=== PATIENT | female | born 1930 | race Caucasian/White ===

== ENCOUNTER 2016-07-28 15:32 | Emergency (ER) | payer OTHER, MEDICARE ==
[2016-07-28 15:41] VITALS: TEMP 98.4
--- NOTE | 2016-07-28 16:01 | EDPHY ---
H & P Time Seen by Provider: 07/28/16 15:51 HPI/ROS: CHIEF COMPLAINT: Hemoptysis HISTORY OF PRESENT ILLNESS: This patient is an anticoagulated 85 year old female who presents to the Emergency Department complaining of two episodes of coughing up bright red blood this afternoon. She reports that she has been sick for 5 weeks; her symptoms first presented with nasal congestion and cough. She was diagnosed with bronchitis by her primary care provider for which she has been treated symptomatically without antibiotics. She reports that frequency of coughing has decreased over the past two weeks and now has almost completely resolved. Upon arrival, her only concern is the hemoptysis this afternoon. She denies shortness of breath. She takes Xarelto and Plavix for atrial fibrillation and history of congestive heart failure and coronary artery disease with stenting. REVIEW OF SYSTEMS: Constitutional: No fever, no chills Eyes: No visual changes ENT: No sore throat Respiratory: +cough, +hemoptysis, no shortness of breath Cardiac: No chest pain Gastrointestinal: No nausea, no vomiting, no abdominal pain Genitourinary: No hematuria, no dysuria Musculoskeletal: No leg pain or swelling Skin: No rash Neurological: No headache, no numbness, no weakness Psychiatric: No depression Past Medical/Surgical History: 1. Congestive heart failure 2. Atrial fibrillation (Xarelto) 3. Coronary artery disease with stenting (Plavix) 4. Anxiety 5. Bipolar disorder 6. CKD 7. Mitral regurgitation 8. History of breast and endometrial cancer Prior medical records reviewed by myself, including most recent visit to the ED in 02/2016. Social History: Former smoker. Livest independently. Smoking Status: Former smoker Physical Exam: General Appearance: Alert, no distress Eyes: Pupils equal and round, no conjunctival pallor or injection ENT, Mouth: Mucous membranes moist Neck: Normal inspection Respiratory: Lungs are clear to auscultation Cardiovascular: Atrial fibrillation Gastrointestinal: Abdomen is soft and non- tender Neurological: A&O, nonfocal, normal gait Skin: Warm and dry, no rash Extremities: Nontender, no pedal edema Psychiatric: Mood and affect normal Constitutional: Initial Vital Signs Temperature (C) 36.9 C 07/28/16 15:36 Heart Rate 105 H 07/28/16 15:36 Respiratory Rate 16 07/28/16 15:36 Blood Pressure 144/82 H 07/28/16 15:36 O2 Sat (%) 98 07/28/16 15:36 O2 Delivery Mode Room Air Allergies/Adverse Reactions: ciprofloxacin [From Cipro] Allergy (Unknown, Verified 11/06/15 09:09) ciprofloxacin HCl [From Cipro] Allergy (Unknown, Verified 11/06/15 09:09) doxycycline Allergy (Unknown, Verified 11/06/15 09:09) levofloxacin [From Levaquin] Allergy (Unknown, Verified 11/06/15 09:09) quetiapine fumarate [From Seroquel] Allergy (Verified 11/06/15 09:09) Sulfa (Sulfonamide Antibiotics) [Sulfa(Sulfonamide Antibiotics)] Allergy ( Verified 11/06/15 09:09) Rash FLYNN Allergy (Uncoded 01/11/12 15:52) ACHILLES TENDONITIS Home Medications: Medication Instructions Recorded Clopidogrel Bisulfate [Plavix (*)] 75 mg PO DAILY 02/23/15 Diltiazem Cd [Cardizem ER 120 MG 120 mg PO DAILY@18 02/23/15 (*)] Furosemide [Lasix 20 MG (*)] 20 mg PO DAILY 02/23/15 Haloperidol [Haldol 1 MG (*)] 1.5 mg PO DAILY 02/23/15 Metoprolol Tartrate [Lopressor 50 50 mg PO BID 02/23/15 mg (*)] Multivitamins [Multivitamin (*)] 1 each PO DAILY 02/23/15 Rivaroxaban [Xarelto 15mg (*)] 15 mg PO DAILY@17 02/23/15 Acetaminophen [Tylenol 325mg (*)] 325 mg PO DAILY PRN 03/19/16 lamoTRIgine [LamICTAL 100 MG (*)] 200 mg PO DAILY 03/19/16 Aspirin [Aspirin 325 mg (*)] 325 mg PO DAILY #0 tab 03/20/16 Medical Decision Making - Diagnostics Imaging: Study: X-ray of the chest Indication: Cough Results: X-ray of the chest was obtained. The results of the study are: Stable cardiomegaly x5 months. No source for hemoptysis identified. The study was read by the radiologist, Dr. Ever Aguillon. I viewed the images myself on the PACS system. ED Course/Re-evaluation: This patient presents minor hemoptysis, complaining of two episodes this afternoon of hemoptysis which she describes as "teaspoon-sized bright red blood. " While examining the patient, she asked me for a Kleenex because she felt as though she was experiencing post-nasal drip. She spit out nasal mucous containing light pink blood into the Kleenex, suggesting that she may be experiencing mild epistaxis as opposed to hemoptysis. Will proceed with chest x-ray given the duration of the patient's cough as well as labs and continued monitoring here in the ED. 1700: Consultation with Dr. Waqas Hernández, body maker, who recommends that she continue anticoagulant use as prescribed and to avoid aspirin and NSAIDs. I discussed this recommendation with the patient who is agreeable to this. She denies NSAID or Aspirin use. She has not had any repeat episodes of hemoptysis while in the ED. She will be discharged home in good condition with customary return precautions and instructions to follow-up with Dr. Hansen, cardiology, on Saturday. Differential Diagnosis: Differential diagnosis includes though is not limited to pneumonia, severe anemia, hypotension, severe hemoptysis - Data Points Laboratory Results: Laboratory Results 07/28/16 16:20 07/28/16 16:20 Departure - Departure Disposition: Home, Routine, Self-Care Clinical Impression: Hemoptysis Condition: Good Instructions: Hemoptysis (ED) Additional Instructions: 1. Continue to take your medications as prescribed by Dr. Hansen. 2. Avoid using Aspirin or any Ibuprofen products. 3. Follow-up with Dr. Hansen on Saturday. Call first thing Saturday morning to schedule your appointment. 4. Return to the Emergency Department if you cough up large amounts of blood, feel faint or lightheaded, have chest pain, or for other serious concerns. Referrals: Luke Hansen MD [Medical Doctor] - As per Instructions Report Scribed for: Jeaneth Hamlin Report Scribed by: Teresa Morocho Date of Report: 07/28/16 Time of Report: 15:56 Physician Review and Approval Statement: 07/28/16 15:56 Portions of this note were transcribed by a medical records receptionist. I personally performed a history, physical exam, medical decision making, and confirmed accuracy of information the transcribed note.
--- NOTE | 2016-07-28 16:19 | CPEKG ---
Heart Rate: 89 RR Interval: 674 QRSD Interval: 98 QT Interval: 388 QTC Interval: 473 QRS [place]: -39 T Wave [place]: 69 EKG Severity - ABNORMAL ECG - EKG Impression: ATRIAL FIBRILLATION EKG Impression: LEFT AXIS DEVIATION EKG Impression: BORDERLINE T ABNORMALITIES, ANT-LAT LEADS Electronically Signed By: Jeaneth Hamlin 28-Jul-2016 23:05:03
[2016-07-28 16:44] LABS: % IMMATURE GRANULYOCYTES 0.3 % (0.0-1.1); ABSOLUTE IMMATURE GRANULOCYTES 0.03 10^3/uL (0.00-0.10); ADD DIFF? NO; ADD MORPH? NO; ADD SCAN? NO; ATYPICAL LYMPHOCYTE FLAG 10 (0-99); FRAGMENT RBC FLAG 0 (0-99); HEMATOCRIT 42.3 % (38.0-47.0); LEFT SHIFT FLG 0 (0-99); LIPEMIA HEMOLYSIS FLAG 80 (0-99); MEAN CELL HEMOGLOBIN CONCENTR. 33.1 g/dL (32.4-36.7); MEAN CELL VOLUME 93.6 fL (81.5-99.8); MEAN PLATELET VOLUME 10.2 fL (8.7-11.7); PLATELET CLUMPS FLAG 10 (0-99); PLATELET COUNT 198 10^3/uL (150-400); RED BLOOD CELL COUNT 4.52 10^6/uL (4.18-5.33); RED CELL DISTRIBUTION WIDTH 13.3 % (11.5-15.2)
[2016-07-28 16:47] VITALS: BP 145/97; PULSE 89; RESP 22; O2SAT 93
[2016-07-28 17:07] LABS: ANION GAP 15 mEq/L (8-16); CALCIUM 10.2 mg/dL (8.5-10.4); CARBON DIOXIDE 22 mEq/l (22-31); CHLORIDE 106 mEq/L (97-110); CREATININE 1.7 mg/dL (0.6-1.0); GLOMERULAR FILTRATION RATE 29; GLUCOSE 119 mg/dL (70-100); SODIUM 143 mEq/L (134-144)
== END 2016-07-28 17:26 | disposition home or self-care (01) ==
DX: R04.2 Hemoptysis (principal); I50.9 Heart failure, unspecified; I25.10 Atherosclerotic heart disease of native coronary artery without angina pectoris; Z79.82 Long term (current) use of aspirin; Z85.3 Personal history of malignant neoplasm of breast; Z85.42 Personal history of malignant neoplasm of other parts of uterus; Z87.891 Personal history of nicotine dependence

== ENCOUNTER → 2016-09-04 | Outpatient (CLI) | payer OTHER, MEDICARE | LOC: BHFA 11:30 | PROVIDERS: ATTEND Internal Medicine Cardiovascular Disease | DX: I25.10 Atherosclerotic heart disease of native coronary artery without angina pectoris (principal); R06.00 Dyspnea, unspecified ==

== ENCOUNTER → 2016-11-23 | Outpatient (CLI) | payer OTHER, MEDICARE | LOC: BHFA 14:15 | PROVIDERS: ATTEND Internal Medicine Cardiovascular Disease | DX: I25.10 Atherosclerotic heart disease of native coronary artery without angina pectoris (principal); I48.91 Unspecified atrial fibrillation ==

== ENCOUNTER → 2017-01-18 | Outpatient (CLI) | payer OTHER, MEDICARE | LOC: BHFA 09:00 | PROVIDERS: ATTEND Internal Medicine Cardiovascular Disease | DX: I25.10 Atherosclerotic heart disease of native coronary artery without angina pectoris (principal) | CPT/HCPCS: 78452; 93017; A9500; J2785 ==

== ENCOUNTER → 2017-03-01 | Outpatient (CLI) | payer OTHER, MEDICARE | LOC: FIMAGING 16:58 → EDSTATUS 16:59 | PROVIDERS: ATTEND Internal Medicine | DX: R05 Cough (principal); I51.7 Cardiomegaly | CPT/HCPCS: 71020; G0463 ==

== ENCOUNTER 2017-04-06 14:17 | Emergency (ER) | payer OTHER, MEDICARE ==
--- NOTE | 2017-04-06 14:46 | EDPHY ---
H & P Time Seen by Provider: 04/06/17 14:29 HPI/ROS: CHIEF COMPLAINT: Right-sided nose bleed HISTORY OF PRESENT ILLNESS: Patient is on Plavix and Xarelto and has atrial fibrillation. She has had a right-sided nosebleed for the past 2 hours and arrives by EMS. No other medical complaints except some gout in her feet. REVIEW OF SYSTEMS: Not dizzy or lightheaded PAST MEDICAL HISTORY: Includes atrial fibrillation on anticoagulation, cardiac stenting, bipolar, hypertension, heart failure, appendectomy. Social history: Here with her son General Appearance: Alert and conversant, cooperative. Moderately anxious. Normal pharynx. Some bleeding coming from the right nostril, but none from the left. Intact airway with speaking in full sentences. Emergency Department course/MDM: Patient had local anesthetic with 0.5% bupivacaine with epinephrine on gauze packed in the right nares. Inspected with otoscope and headlamp. A single area on the septum had exposed vessel, had Surgicel with bacitracin placed on it but no active bleeding was seen. Patient was observed. 1555: no further significant bleeding; do not think packing necessary. Smoking Status: Former smoker Constitutional: Initial Vital Signs Temperature (C) 36.2 C 04/06/17 14:17 Heart Rate 89 04/06/17 14:17 Respiratory Rate 20 04/06/17 14:17 Blood Pressure 176/105 H 04/06/17 14:17 O2 Sat (%) 92 04/06/17 14:17 O2 Delivery Mode Room Air Allergies/Adverse Reactions: ciprofloxacin [From Cipro] Allergy (Unknown, Verified 11/06/15 09:09) ciprofloxacin HCl [From Cipro] Allergy (Unknown, Verified 11/06/15 09:09) doxycycline Allergy (Unknown, Verified 11/06/15 09:09) levofloxacin [From Levaquin] Allergy (Unknown, Verified 11/06/15 09:09) quetiapine fumarate [From Seroquel] Allergy (Verified 11/06/15 09:09) Sulfa (Sulfonamide Antibiotics) [Sulfa(Sulfonamide Antibiotics)] Allergy ( Verified 11/06/15 09:09) Rash FLYNN Allergy (Uncoded 01/11/12 15:52) ACHILLES TENDONITIS Home Medications: Medication Instructions Recorded Clopidogrel Bisulfate [Plavix (*)] 75 mg PO DAILY 02/23/15 Diltiazem Cd [Cardizem ER 120 MG 120 mg PO DAILY@18 02/23/15 (*)] Furosemide [Lasix 20 MG (*)] 20 mg PO DAILY 02/23/15 Haloperidol [Haldol 1 MG (*)] 1.5 mg PO DAILY 02/23/15 Metoprolol Tartrate [Lopressor 50 50 mg PO BID 02/23/15 mg (*)] Multivitamins [Multivitamin (*)] 1 each PO DAILY 02/23/15 Rivaroxaban [Xarelto 15mg (*)] 15 mg PO DAILY@17 02/23/15 Acetaminophen [Tylenol 325mg (*)] 325 mg PO DAILY PRN 03/19/16 lamoTRIgine [LamICTAL 100 MG (*)] 200 mg PO DAILY 03/19/16 Aspirin [Aspirin 325 mg (*)] 325 mg PO DAILY #0 tab 03/20/16 MDM/Departure - Depart Disposition: Home, Routine, Self-Care Clinical Impression: Anterior epistaxis Condition: Good Instructions: Nosebleed (ED) Referrals: Sean Cardenas MD [Primary Care Provider] - As per Instructions Jw Kee MD [Medical Doctor] - As per Instructions
[2017-04-06 15:48] VITALS: RESP 16
[2017-04-06 16:23] VITALS: BP 162/88; PULSE 86; TEMP 97.9; O2SAT 92
== END 2017-04-06 16:22 | disposition home or self-care (01) ==
LOC: EDUNIT#
DX: R04.0 Epistaxis (principal); I10 Essential (primary) hypertension; Z79.82 Long term (current) use of aspirin; Z87.891 Personal history of nicotine dependence

== ENCOUNTER → 2017-06-04 | Outpatient (CLI) | payer OTHER, MEDICARE | LOC: FIMAGING 10:05 | PROVIDERS: ATTEND Obstetrics & Gynecology | DX: N63.10 Unspecified lump in the right breast, unspecified quadrant (principal) ==

== ENCOUNTER 2017-08-04 08:17 | Emergency (ER) | payer OTHER, MEDICARE ==
[2017-08-04] MEDS ORDERED: SILVER NITRATE APPLICATOR 1 APPL TP ONE ×2 (08:25→08:32)
[2017-08-04] MEDS ORDERED: OXYMETAZOLINE 30 ML NASAL SPRAY ONE (08:25)
[2017-08-04 08:30] VITALS: RESP 16; TEMP 97.5
[2017-08-04] MEDS ORDERED: OXYMETAZOLINE 30 ML NASAL SPRAY EACHNARE ONE (08:32)
[2017-08-04] MEDS ORDERED: COCAINE HCL 4% 4 ML BTL TP ONE ×2 (08:43→08:54)
--- NOTE | 2017-08-04 08:57 | EDPHY ---
H & P Smoking Status: Former smoker Time Seen by Provider: 08/04/17 08:23 HPI/ROS: CHIEF COMPLAINT: Epistaxis HISTORY OF PRESENT ILLNESS: 86-year-old female presents to the emergency department with epistaxis that began this morning. Patient has had problems with this in the past. She has a history of atrial fibrillation is on Plavix and Xarelto. She saw Dr. Helio Yan, ENT, 3 weeks ago and had a scope done. Apparently they could not find the source of bleeding. She was instructed to use Vaseline or Aquaphor twice daily. She states that she was using this regularly and then stopped few days ago because she did not like applying the medication daily. She denies pain in her chest or difficulty breathing. Denies a headache. Denies abdominal pain. No reports of hematemesis or coughing up blood. No reported trauma. REVIEW OF SYSTEMS: Constitutional: No fever, no chills. Eyes: No double or blurry vision. ENT: Epistaxis. No sore throat. Respiratory: No cough, no shortness of breath. Cardiac: No chest pain. Gastrointestinal: No abdominal pain, vomiting or diarrhea. Genitourinary: No dysuria. Musculoskeletal: No neck or back pain. Skin: No rashes. Neurological: No headache. (Tami Carmona) Past Medical/Surgical History: Atrial fibrillation, CHF, stent (Kristine,Tami Dey) Social History: Single and lives in [place] (Kristine,Tami Dey) Physical Exam: General Appearance: Alert, no distress. 115/101, 93% on room air. Eyes: Pupils equal and round. Extraocular motions are all intact. ENT: Mouth: Mucous membranes moist. Active bleeding noted from the right nostril. No bleeding from the left side. She does have some blood in the posterior pharynx. Respiratory: No wheezing, rhonchi, or rales, lungs are clear to auscultation. Cardiovascular: Regular rate and rhythm. Gastrointestinal: Abdomen is soft and nontender, no masses, no rebound or guarding, bowel sounds normal. Neurological: Alert and oriented x 3, cranial nerves II through XII grossly intact Skin: Warm and dry, no rashes. Musculoskeletal: Nontender to palpate along the cervical, thoracic or lumbar spine. Neck is supple. Extremities: Full range of motion and no peripheral edema. Psychiatric: Patient is oriented X 3, there is no agitation. (Tami Carmona) Constitutional: Initial Vital Signs Temperature (C) 36.4 C 08/04/17 08:17 Heart Rate 87 08/04/17 08:17 Respiratory Rate 16 08/04/17 08:17 Blood Pressure 115/101 H 08/04/17 08:17 O2 Sat (%) 93 08/04/17 08:17 O2 Delivery Mode Room Air Allergies/Adverse Reactions: ciprofloxacin [From Cipro] Allergy (Unknown, Verified 11/06/15 09:09) ciprofloxacin HCl [From Cipro] Allergy (Unknown, Verified 11/06/15 09:09) doxycycline Allergy (Unknown, Verified 11/06/15 09:09) levofloxacin [From Levaquin] Allergy (Unknown, Verified 11/06/15 09:09) quetiapine fumarate [From Seroquel] Allergy (Verified 11/06/15 09:09) Sulfa (Sulfonamide Antibiotics) [Sulfa(Sulfonamide Antibiotics)] Allergy ( Verified 11/06/15 09:09) Rash FLYNN Allergy (Uncoded 01/11/12 15:52) ACHILLES TENDONITIS Home Medications: Medication Instructions Recorded Clopidogrel Bisulfate [Plavix (*)] 75 mg PO DAILY 02/23/15 Diltiazem Cd [Cardizem ER 120 MG 120 mg PO DAILY@18 02/23/15 (*)] Furosemide [Lasix 20 MG (*)] 20 mg PO DAILY 02/23/15 Haloperidol [Haldol 1 MG (*)] 1.5 mg PO DAILY 02/23/15 Metoprolol Tartrate [Lopressor 50 50 mg PO BID 02/23/15 mg (*)] Multivitamins [Multivitamin (*)] 1 each PO DAILY 02/23/15 Rivaroxaban [Xarelto 15mg (*)] 15 mg PO DAILY@17 02/23/15 Acetaminophen [Tylenol 325mg (*)] 325 mg PO DAILY PRN 03/19/16 lamoTRIgine [LamICTAL 100 MG (*)] 200 mg PO DAILY 03/19/16 Aspirin [Aspirin 325 mg (*)] 325 mg PO DAILY #0 tab 03/20/16 Medical Decision Making ED Course/Re-evaluation: 86-year-old female presents to the emergency department with nosebleed. I spoke with the on-call ENT, Dr. Helio Yan, who recommended Merocel packing and he would see her in follow-up this week. He did not recommend oral antibiotics for this patient. Merocel packing placed. Patient tolerated well. The patient was observed for nearly 1 hr and did not have any recurring signs of bleeding. She will be discharged home with her son who is at bedside. (Tami Carmona) Did not see this patient while she was in the emergency department. However her care was discussed with PA while patient was in the department. I agree with treatment plan and management (Helio Zurita) Differential Diagnosis: Including but not limited to epistaxis, digital trauma, hypertension, anemia ( Tami Carmona) - Data Points Medications Given: Discontinued Medications Cocaine HCl (Cocaine Hcl) 1 araceli TP EDNOW ONE Stop: 08/04/17 08:55 Last Admin: 08/04/17 09:10 Dose: Not Given Oxymetazoline HCl (Afrin Nasal [place]) 2 sprays EACHNARE EDNOW ONE Stop: 08/04/17 08:33 Last Admin: 08/04/17 08:38 Dose: Not Given Silver Nitrate/Potassium Nitrate (Silver Nitrate Applicator) 1 each TP EDNOW ONE Stop: 08/04/17 08:33 Last Admin: 08/04/17 08:39 Dose: Not Given Departure - Departure Disposition: Home, Routine, Self-Care Clinical Impression: Epistaxis Condition: Good Instructions: Nosebleed (ED) Additional Instructions: Keep packing in nose until follow-up with Dr. Yan. Use nasal lubricant such as Vaseline as discussed. Return to the emergency department if you develop recurring bleeding or if you feel worse in any way. Referrals: Helio Yan MD [Medical Doctor] - 2-3 days without fail (ENT on-call)
[2017-08-04 10:01] VITALS: BP 177/89; PULSE 82; O2SAT 94
== END 2017-08-04 11:30 | disposition home or self-care (01) ==
LOC: EDUNIT#
PROC: 2Y41X5Z Packing of Nasal Region using Packing Material (ICD-10-PCS; principal; 2017-08-04)
DX: R04.0 Epistaxis (principal); I50.9 Heart failure, unspecified; Z79.01 Long term (current) use of anticoagulants; Z79.82 Long term (current) use of aspirin; Z87.891 Personal history of nicotine dependence

== ENCOUNTER 2017-08-04 12:12 | Emergency (ER) | payer OTHER, MEDICARE ==
[2017-08-04 12:17] VITALS: TEMP 98.6
[2017-08-04] MEDS ORDERED: SILVER NITRATE APPLICATOR 1 APPL TP ONE (13:57)
[2017-08-04] MEDS ORDERED: OXYMETAZOLINE 30 ML NASAL SPRAY ONE (13:57)
[2017-08-04] MEDS ORDERED: LIDOCAINE HCL 4% TOPICAL SOLN 50ML ONE (14:10)
--- NOTE | 2017-08-04 14:52 | EDPHY ---
H & P Smoking Status: Former smoker Time Seen by Provider: 08/04/17 12:55 HPI/ROS: CHIEF COMPLAINT: Recurring epistaxis, anxiety HISTORY OF PRESENT ILLNESS: 86-year-old female presents to the emergency department with recurring epistaxis. She was seen in emergency department earlier today after she had Merocel packing placed. She was instructed to follow up with her ENT, Dr. Helio Yan. The patient states that she lives alone and became extremely anxious that she was going to have recurring bleeding. Her son at bedside states that while he was with her, she did develop some recurring bleeding around the packing. She denies pain in her chest or difficulty breathing. The son feels that she will require admission to the hospital. ROS: Denies dysphagia, headache, difficulty breathing. (EricayaleTami Dey) Past Medical/Surgical History: Bipolar, appendectomy, hypertension, atrial fibrillation, CHF, stents, endometrial carcinoma, breast cancer (Tami Carmona) Social History: Lives alone in [place] (Tami Carmona) Physical Exam: On examination the patient has packing present in her right knee air. There is no active bleeding noted. There is small bleeding noted in the posterior pharynx. Her son is at bedside. Her heart is irregularly irregular. The patient seems extremely anxious. She is requesting admission to hospital. ( EricayaelLarisaTami M) Constitutional: Initial Vital Signs Temperature (C) 37.0 C 08/04/17 12:15 Heart Rate 112 H 08/04/17 12:15 Respiratory Rate 20 08/04/17 12:15 Blood Pressure 201/99 H 08/04/17 12:15 O2 Sat (%) 93 08/04/17 12:15 O2 Delivery Mode Room Air Allergies/Adverse Reactions: ciprofloxacin [From Cipro] Allergy (Unknown, Verified 11/06/15 09:09) ciprofloxacin HCl [From Cipro] Allergy (Unknown, Verified 11/06/15 09:09) doxycycline Allergy (Unknown, Verified 11/06/15 09:09) levofloxacin [From Levaquin] Allergy (Unknown, Verified 11/06/15 09:09) quetiapine fumarate [From Seroquel] Allergy (Verified 11/06/15 09:09) Sulfa (Sulfonamide Antibiotics) [Sulfa(Sulfonamide Antibiotics)] Allergy ( Verified 11/06/15 09:09) Rash FLYNN Allergy (Uncoded 01/11/12 15:52) ACHILLES TENDONITIS Home Medications: Medication Instructions Recorded Clopidogrel Bisulfate [Plavix (*)] 75 mg PO DAILY 02/23/15 Diltiazem Cd [Cardizem ER 120 MG 120 mg PO DAILY@18 02/23/15 (*)] Furosemide [Lasix 20 MG (*)] 20 mg PO DAILY 02/23/15 Haloperidol [Haldol 1 MG (*)] 1.5 mg PO DAILY 02/23/15 Metoprolol Tartrate [Lopressor 50 50 mg PO BID 02/23/15 mg (*)] Multivitamins [Multivitamin (*)] 1 each PO DAILY 02/23/15 Rivaroxaban [Xarelto 15mg (*)] 15 mg PO DAILY@17 02/23/15 Acetaminophen [Tylenol 325mg (*)] 325 mg PO DAILY PRN 03/19/16 lamoTRIgine [LamICTAL 100 MG (*)] 200 mg PO DAILY 03/19/16 Aspirin [Aspirin 325 mg (*)] 325 mg PO DAILY #0 tab 03/20/16 MDM/Departure - [facility] ED Course/Re-evaluation: 86-year-old female with recurring epistaxis. I explained to both the patient and son at bedside that if she would be admitted to the hospital, she is a great risk for ebony pneumonia or possibly influenza. I spoke with the on -call ENT, who was also her ENT, Dr. Helio Yan, who came to evaluate the patient and cauterize bleeding vessel. The patient will be discharged home and will follow up with Dr. Helio Yan in 2 weeks. (Tami Carmona) I did not see this patient while she was in the emergency department. However her care was discussed with the PA while patient was in the department. I agree with treatment plan and management (Helio Zurita) - Depart Disposition: Home, Routine, Self-Care Clinical Impression: Epistaxis, Anxiety Condition: Good Instructions: Nosebleed (ED), Anxiety (ED) Additional Instructions: Follow up with Dr. Helio Yan as instructed. Nasal lubricant in your nose as discussed. Referrals: Helio Yan MD [Medical Doctor] - As per Instructions
[2017-08-04 15:12] VITALS: BP 116/91; PULSE 73; RESP 16; O2SAT 97
--- NOTE | 2017-08-04 15:30 | GCON ---
[f rep st] CONSULTATION ENT CONSULTATION CHIEF COMPLAINT: Epistaxis. HISTORY OF PRESENT ILLNESS: An 86-year-old female on anticoagulation with a history of recurrent epi staxis. She was previously packed in the ER successfully but had a combination of some bloody ooze a nd extreme anxiety that brought her back to the ER. She returns to the ED with again some mild anxie ty and bleeding. I was called in consultation for this. She states she has had some bleeding during the day today, and after she left the ER before, had some more bloody ooze at home. Her son, who is with her, corroborates this. The bleeding has been coming just from the right. She is on home O2. She denies lightheadedness, difficulty breathing, nasal obstruction. REVIEW OF SYSTEMS: Negative x10 but for that which is reported in the HPI. PAST MEDICAL HISTORY/PAST SURGICAL HISTORY: Atrial fibrillation, CHF, stent. SOCIAL HISTORY: Lives alone in [place]. Former smoker. PHYSICAL EXAMINATION: VITAL SIGNS: AVSS. GENERAL: Alert, interactive, no acute distress. EARS: B ilateral pinnae, and canals are nonerythematous and without otorrhea. EYES: EOMI. NOSE: There is right-sided nasal packing. Only some mild serosanguineous ooze. ORAL CAVITY: Mild bleeding at the posterior oropharynx, otherwise unremarkable. NECK: Supple with normal inspection. NEUROLOGIC: Al ert and oriented x3. Cranial nerves 2-12 are grossly intact. ASSESSMENT: An 86-year-old female, who is anticoagulated and having recurrent epistaxis. We had a l charlene discussion with she and her son about whether to leave the packing in place or try cautery again. She has elected to try cautery again. The risks, benefits, and alternatives to this procedure were explained at length to her, and she stated she understood and agreed. PROCEDURE: Right-sided nasal packing was removed. A cotton ball soaked with Afrin and lidocaine was placed in the nasal cavity. There was some mobi-el-harmqemw bleeding coming from the septum at the right. Another cotton ball was placed. After a few minutes, both of these were removed. A Gross suction was used to evacuate the nasal cavity, and multiple silver nitrate cautery sticks were used t o eventually stop the bleeding from the mid and superior mid septum. Cotton balls were again placed and used to clean out the nose. The posterior oropharynx was re-examined. There was no blood there. Bacitracin ointment was placed on the cauterized portion of the septum. The patient tolerated this well. PLAN: 86-year-old female status post right septal cautery. She tolerated this well. No evidence of bleeding. She was discharged with both verbal and written instructions on how to take care of and p revent nosebleeds. She stated she understood these instructions. We will have her follow up in [place] in 2 weeks. /[id number]/MODL
== END 2017-08-04 15:12 | disposition home or self-care (01) ==
PROC: 095KXZZ Destruction of Nasal Mucosa and Soft Tissue, External Approach (ICD-10-PCS; principal; 2017-08-04)
DX: R04.0 Epistaxis (principal); F41.9 Anxiety disorder, unspecified; I10 Essential (primary) hypertension; I50.9 Heart failure, unspecified; Z79.82 Long term (current) use of aspirin; Z85.3 Personal history of malignant neoplasm of breast; Z85.42 Personal history of malignant neoplasm of other parts of uterus; Z95.5 Presence of coronary angioplasty implant and graft; Z87.891 Personal history of nicotine dependence

== ENCOUNTER 2017-08-06 02:22 | Emergency (ER) | payer OTHER, MEDICARE ==
[2017-08-06 02:36] VITALS: TEMP 98.1
[2017-08-06] MEDS ORDERED: OXYMETAZOLINE 30 ML NASAL SPRAY EACHNARE ONE (03:09)
[2017-08-06] MEDS ORDERED: TRANEXAMIC ACID 1,000 MG/10 ML VIAL TP ONE (03:13)
--- NOTE | 2017-08-06 03:22 | EDPHY ---
H & P Stated Complaint: epistaxis Time Seen by Provider: 08/06/17 02:58 HPI/ROS: HPI The patient presents with epistaxis which has been present for the last 1 hr, not responsive to nasal clamp that she had at home. She reports a slow ooze from her right nostril. She awoke at midnight and used her nasal saline and Neosporin. She noticed what felt like a scab in her nostril and used a Q-tip to touch this. The bleeding started quickly thereafter. She called the on- call ENT and followed instructions to use nasal clamp. She was concerned because the bleeding continued so she called 911. She arrives at an ambulance. There is no ongoing bleeding currently though nasal clamp is in place. She called her group leader [employer] last night and stopped taking her anticoagulants because of her bleeding. They have approved of this. Two days ago, she was seen in the ER for epistaxis on 2 separate visits, Dr. Yan for the and D cauterized her. REVIEW OF SYSTEMS Constitutional: No fever, no chills. Eyes: No discharge. ENT: No sore throat. Cardiovascular: No chest pain, no palpitations. Respiratory: No cough, no shortness of breath. Gastrointestinal: No abdominal pain, no vomiting. Genitourinary: No hematuria. Musculoskeletal: No back pain. Skin: No rashes. Neurological: No headache. PMHx: She is on anticoagulants for CAD as atrial fibrillation PHYSICAL General Appearance: Alert, no distress Eyes: Pupils equal and round no pallor or injection ENT, Mouth: Right nasal septum with no active bleeding, there is whitish membranous material in the septum, Mucous membranes moist Respiratory: Breathing comfortably Neurological: A&O, moves all extremities Skin: Warm and dry, no rashes Musculoskeletal: Neck is supple non tender Extremities: symmetrical, full range of motion Psychiatric: Patient is oriented X 3, there is no agitation Source: Patient, EMS, Old records - Personal History Tetanus Vaccine Date: < 5 yrs - Medical/Surgical History Hx Asthma: No Hx Chronic Respiratory Disease: No Hx Diabetes: No Hx Cardiac Disease: Yes Hx Renal Disease: Yes Hx Cirrhosis: No Hx Alcoholism: No Hx HIV/AIDS: No Hx Splenectomy or Spleen Trauma: No Other PMH: STENTS PLACE 06/18/13 , BREAST CA, LUMPECTOMY, HEART ATTACK, HYSTERECTOMY,BIPOLAR,APPY,HTN, ENDOMETRIAL CA, A-FIB, CHF - Social History Smoking Status: Former smoker Constitutional: Initial Vital Signs Temperature (C) 36.7 C 08/06/17 02:33 Heart Rate 97 08/06/17 02:33 Respiratory Rate 20 08/06/17 02:33 Blood Pressure 167/106 H 08/06/17 02:33 O2 Sat (%) 92 08/06/17 02:33 O2 Delivery Mode Room Air Allergies/Adverse Reactions: ciprofloxacin [From Cipro] Allergy (Unknown, Verified 08/06/17 02:33) ciprofloxacin HCl [From Cipro] Allergy (Unknown, Verified 08/06/17 02:33) doxycycline Allergy (Unknown, Verified 08/06/17 02:33) levofloxacin [From Levaquin] Allergy (Unknown, Verified 08/06/17 02:33) quetiapine fumarate [From Seroquel] Allergy (Verified 08/06/17 02:33) Sulfa (Sulfonamide Antibiotics) [Sulfa(Sulfonamide Antibiotics)] Allergy ( Verified 08/06/17 02:33) Rash FLYNN Allergy (Uncoded 08/06/17 02:33) ACHILLES TENDONITIS Home Medications: Medication Instructions Recorded Clopidogrel Bisulfate [Plavix (*)] 75 mg PO DAILY 02/23/15 Diltiazem Cd [Cardizem ER 120 MG 120 mg PO DAILY@18 02/23/15 (*)] Furosemide [Lasix 20 MG (*)] 20 mg PO DAILY 02/23/15 Haloperidol [Haldol 1 MG (*)] 1.5 mg PO DAILY 02/23/15 Metoprolol Tartrate [Lopressor 50 50 mg PO BID 02/23/15 mg (*)] Multivitamins [Multivitamin (*)] 1 each PO DAILY 02/23/15 Rivaroxaban [Xarelto 15mg (*)] 15 mg PO DAILY@17 02/23/15 Acetaminophen [Tylenol 325mg (*)] 325 mg PO DAILY PRN 03/19/16 lamoTRIgine [LamICTAL 100 MG (*)] 200 mg PO DAILY 03/19/16 Aspirin [Aspirin 325 mg (*)] 325 mg PO DAILY #0 tab 03/20/16 Medical Decision Making Procedures: NOSE BLEED Procedure: Epistaxis control. Indication: nosebleed not controlled by direct pressure. Risks, benefits, alternatives discussed with patient and consent obtained. The right nares was anesthetized with lidocaine with epinephrine Afrin. The anterior epistaxis was identified. The patient was treated with packing with TXA soaked cotton ball. Following the procedure the patient was re-examined and the bleeding was well controlled. The patient tolerated the procedure well. The procedure was performed by myself. Differential Diagnosis: 86-year-old female on anticoagulant medication presents with recurrent epistaxis after having cautery performed 2 days ago. The bleeding seems to be quite mild at this time. She has known bleeding from her right septum. In the emergency department, nasal clamps were placed. Patient was anesthetized with Afrin and lidocaine with epinephrine. She had a TXA soaked cotton ball placed in her right naris for 30 min with complete resolution of her bleeding. She was discharged home and I have instructed her to follow up with ENT today. She is in agreement with this plan. Departure - Departure Disposition: Home, Routine, Self-Care Clinical Impression: Epistaxis Condition: Good Instructions: Nosebleed (ED) Referrals: Sean Cardenas MD [Primary Care Provider] - As per Instructions Helio Yan MD [Medical Doctor] - As per Instructions
[2017-08-06 04:17] VITALS: BP 168/96; PULSE 86; RESP 18; O2SAT 93
== END 2017-08-06 04:15 | disposition home or self-care (01) ==
LOC: EDUNIT#
PROC: 2Y41X5Z Packing of Nasal Region using Packing Material (ICD-10-PCS; principal; 2017-08-06)
DX: R04.0 Epistaxis (principal); I11.0 Hypertensive heart disease with heart failure; I50.9 Heart failure, unspecified; Z85.3 Personal history of malignant neoplasm of breast; Z79.82 Long term (current) use of aspirin; Z79.01 Long term (current) use of anticoagulants; Z85.42 Personal history of malignant neoplasm of other parts of uterus; Z87.891 Personal history of nicotine dependence; Z95.5 Presence of coronary angioplasty implant and graft

== ENCOUNTER 2017-08-06 12:07 | Inpatient (IN) | payer OTHER, MEDICARE ==
--- NOTE | 2017-08-06 12:30 | EDPHY ---
H & P Stated Complaint: recurrent epistaxis, here this a.m., HTN Time Seen by Provider: 08/06/17 12:29 - Personal History Current Tetanus/Diphtheria Vaccine: Yes Current Tetanus Diphtheria and Acellular Pertussis (TDAP): Yes Tetanus Vaccine Date: < 5 yrs - Medical/Surgical History Hx Asthma: No Hx Chronic Respiratory Disease: No Hx Diabetes: No Hx Cardiac Disease: Yes Hx Renal Disease: Yes Hx Cirrhosis: No Hx Alcoholism: No Hx HIV/AIDS: No Hx Splenectomy or Spleen Trauma: No Other PMH: STENTS PLACE 06/18/13 , BREAST CA, LUMPECTOMY, HEART ATTACK, HYSTERECTOMY,BIPOLAR,APPY,HTN, ENDOMETRIAL CA, A-FIB, CHF - Social History Smoking Status: Former smoker Constitutional: Initial Vital Signs Temperature (C) 36.4 C 08/06/17 12:22 Heart Rate 113 H 08/06/17 12:22 Respiratory Rate 22 H 08/06/17 12:22 Blood Pressure 180/131 H 08/06/17 12:22 O2 Sat (%) 96 08/06/17 12:22 O2 Delivery Mode Blowby O2 (L/minute) 10 Allergies/Adverse Reactions: ciprofloxacin [From Cipro] Allergy (Unknown, Verified 08/06/17 02:33) ciprofloxacin HCl [From Cipro] Allergy (Unknown, Verified 08/06/17 02:33) doxycycline Allergy (Unknown, Verified 08/06/17 02:33) levofloxacin [From Levaquin] Allergy (Unknown, Verified 08/06/17 02:33) quetiapine fumarate [From Seroquel] Allergy (Verified 08/06/17 02:33) Sulfa (Sulfonamide Antibiotics) [Sulfa(Sulfonamide Antibiotics)] Allergy ( Verified 08/06/17 02:33) Rash FLYNN Allergy (Uncoded 08/06/17 02:33) ACHILLES TENDONITIS Home Medications: Medication Instructions Recorded Clopidogrel Bisulfate [Plavix (*)] 75 mg PO DAILY 02/23/15 Diltiazem Cd [Cardizem ER 120 MG 120 mg PO DAILY@02/23/15 (*)] Furosemide [Lasix 20 MG (*)] 20 mg PO DAILY 02/23/15 Haloperidol [Haldol 1 MG (*)] 1.5 mg PO DAILY@02/23/15 Metoprolol Tartrate [Lopressor 50 50 mg PO BID@,02/23/15 mg (*)] Multivitamins [Multivitamin (*)] 1 each PO DAILY 02/23/15 Rivaroxaban [Xarelto 15mg (*)] 15 mg PO DAILY@02/23/15 Acetaminophen [Tylenol 325mg (*)] 325 mg PO DAILY PRN 03/19/16 lamoTRIgine [LamICTAL 100 MG (*)] 200 mg PO DAILY 03/19/16 Medical Decision Making ED Course/Re-evaluation: CHIEF COMPLAINT: Epistaxis HISTORY OF PRESENT ILLNESS: The patient is an anticoagulated 86 y/o female on Plavix and Xarelto who returns via EMS to the ED for the 4th time in the last 2 days with persistent severe epistaxis. Her medical history includes breast cancer, ID, bipolar disorder, CHF, home O2 use, and atrial fibrillation. She was evaluated in the ED by Dr. Helio Yan, ENT, on 08/04/17 and was cauterized. This temporarily worked until she started bleeding again last night. She returned to the ED and was treated with TXA packing and referred to ENT for follow up today. While loading groceries this afternoon she had a sudden gush of fresh blood that she was unable to control with pressure and Angel- synephrine spray and contacted EMS for transport here. During assessment, she is continuing to bleed through the nasal clamp. She denies any other new symptoms including syncope or near-syncope. REVIEW OF SYSTEMS: A 10 point review of systems was performed and is negative with the exception of the elements mentioned in the history of present illness. PHYSICAL EXAM: HR, BP, O2 Sat, RR. Temp noted General Appearance: Alert, well hydrated, appropriate, and non-toxic appearing. Head: Atraumatic without scalp tenderness or obvious injury Eyes: Pupils equal, round, reactive to light and accommodation, EOMI, no trauma , no injection. Ears: Clear bilaterally, no perforation, normal landmarks Nose: Active bleeding right nares despite nasal clamp, no trauma Throat: Blood in back of throat, dried blood around mouth. Neck: Supple, nontender, no lymphadenopathy. Respiratory: No retractions, no distress, no wheezes, and no accessory muscle use. Lungs are clear to auscultation bilaterally. Cardiovascular: Regular rate and rhythm, no murmurs, rubs, or gallops. Good capillary refill all extremities. Gastrointestinal: Abdomen is soft, nontender, non-distended, no masses, no rebound, no guarding, no peritoneal signs. Musculoskeletal: Normal active ROM of all extremities, atraumatic. Neurological: Alert, appropriate, and interactive. The patient has non-focal cranial nerves, motor, sensory, and cerebellar exam. Skin: No rashes, good turgor, no nodules on palpation. Past medical history: Breast cancer, ID, bipolar disorder, hypertension, endometrial cancer, atrial fibrillation, CHF. Past surgical history: Stents 06/18/13, breast lumpectomy, hysterectomy, appendectomy Family history: Noncontributory Social history: Lives in [place]. Retired. DIFFERENTIAL DIAGNOSIS: The differential diagnosis for the patient's epistaxis included but was not limited to abrasion, laceration, anticoagulation. MEDICAL DECISION MAKING: This is an anticoagulated 86 y/o female who returns for the 4th time complaining of recurrent epistaxis despite cauterization and TXA. Plan for ENT consult and admission for management. Basic labs ordered to check blood counts. Normal H&H. 1310: Consulted with Dr. Helio Yan, ENT, who cared for patient in the ED 2 days ago for the same complaint. He can assess patient in the ED after his office hours or alternatively we can contact the on-call doc if she needs ENT intervention sooner. Spoke with hospitalist service. Dr. Pedro accepts admission. - Data Points Laboratory Results: Laboratory Results 08/06/17 12:00 08/06/17 12:00 WBC 8.48 10^3/uL 10^3/uL (3.80-9.50) RBC 4.94 10^6/uL 10^6/uL (4.18-5.33) Hgb 15.1 g/dL g/dL (12.6-16.3) Hct 45.6 % % (38.0-47.0) MCV 92.3 fL fL (81.5-99.8) MCH 30.6 pg pg (27.9-34.1) MCHC 33.1 g/dL g/dL (32.4-36.7) RDW 13.3 % % (11.5-15.2) Plt Count 240 10^3/uL 10^3/uL (150-400) MPV 10.3 fL fL (8.7-11.7) Neut % (Auto) 60.4 % % (39.3-74.2) Lymph % (Auto) 27.9 % % (15.0-45.0) [place] % (Auto) 8.1 % % (4.5-13.0) Eos % (Auto) 2.8 % % (0.6-7.6) Baso % (Auto) 0.6 % % (0.3-1.7) Nucleat RBC Rel Count 0.0 % % (0.0-0.2) Absolute Neuts (auto) 5.11 10^3/uL 10^3/uL (1.70-6.50) Absolute Lymphs (auto) 2.37 10^3/uL 10^3/uL (1.00-3.00) Absolute Monos (auto) 0.69 10^3/uL 10^3/uL (0.30-0.80) Absolute Eos (auto) 0.24 10^3/uL 10^3/uL (0.03-0.40) Absolute Basos (auto) 0.05 10^3/uL 10^3/uL (0.02-0.10) Absolute Nucleated RBC 0.00 10^3/uL 10^3/uL (0-0.01) Immature Gran % 0.2 % % (0.0-1.1) Immature Gran # 0.02 10^3/uL 10^3/uL (0.00-0.10) Departure - Departure Disposition: [facility] Inpatient Acute Clinical Impression: Epistaxis Condition: Fair Report Scribed for: Bill Batista Report Scribed by: Xiomara Motley Date of Report: 08/06/17 Time of Report: 13:28
[2017-08-06 12:36] LABS: PLATELET COUNT 240 10^3/uL (150-400)
[2017-08-06] MEDS ORDERED: OXYMETAZOLINE 30 ML NASAL SPRAY ONE (12:46)
[2017-08-06] MEDS ORDERED: ONDANSETRON DISINTEGRATING 4 MG TAB PO PRN (12:59)
[2017-08-06] MEDS ORDERED: ONDANSETRON 4 MG/2 ML VIAL IVP PRN (12:59)
[2017-08-06] MEDS ORDERED: ACETAMINOPHEN 325 MG TAB PO PRN (14:20)
--- NOTE | 2017-08-06 15:46 | GHP ---
[f rep st] HISTORY AND PHYSICAL DATE OF ADMISSION: 08/06/2017 CHIEF COMPLAINT: Recurrent epistaxis. HISTORY OF PRESENT ILLNESS: An 86-year-old female with multiple medical issues including atrial fibrillation, on Xarelto, history of coronary artery disease and stenting, on Plavix, severe TR, moderate AR/MR, presenting with recurrent epistaxis. Today is her fourth visit to the ER in the past 2 days with persistent severe epistaxis. She was seen by Dr. Helio Yan in ENT on 08/04 and was cauterized at that time. This restarted again last night, so she returned to the ER, and was treated with TXA packing and referred for a followup with ENT. Today, while loading groceries, she had a sudden gush of blood that she was unable to control, thus contacted EMS for transport here. During her ER assessment, she continued to bleed through the nasal clamp. She denies any dizziness or lightheadedness. No headache. She denies any chest pain, shortness of breath, lower extremity swelling, PND or pillow orthopnea. She denies any presyncopal symptoms. REVIEW OF SYSTEMS: I completed a 10-point review of systems, negative except as noted in HPI. PAST MEDICAL HISTORY: 1. CKD, creatinine 1.5. 2. 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 3. Hyperlipidemia. 4. Atrial fibrillation, on Xarelto. 5. Coronary artery disease, history of stents, May 2013, on Plavix. 6. History of breast cancer, status post lumpectomy and XRT. 7. Bipolar disorder. 8. Hypertension. 9. Cardiac stress test, February 2016, with 2 fixed defects at the LAD and apex. PAST SURGICAL HISTORY: 1. Hysterectomy. 2. Cardiac stents, May 2013. 3. Appendectomy. 4. Lumpectomy. SOCIAL HISTORY: Lives alone in [place]. Her son lives in [place]. Denies tobacco , illicits, or alcohol. ALLERGIES: Cipro, doxycycline, Levaquin, quetiapine, sulfas, and quinolones. HOME MEDICATIONS: Haldol 1.5 mg daily, Lasix 20 mg daily, diltiazem 120 mg daily, Plavix 75, Tylenol as needed, Lamictal 200 mg daily, Xarelto 15 daily, multivitamin, metoprolol 50 mg b.i.d. PHYSICAL EXAMINATION: VITAL SIGNS: Temperature is 36.4, blood pressure is 153/ 83, heart rate 75, 10 L on blow-by. GENERAL: She is very anxious, sitting up, coughing up small amounts of blood. HEENT: Nose is clamped with some trickling of blood. Dry blood around the mouth. CV: Tachy, irregularly irregular. No lower extremity edema. LUNGS: Clear. No crackles or wheezing. ABDOMEN: Obese, soft, nontender, nondistended. Positive bowel sounds. GENITOURINARY: No Aguilar. MUSCULOSKELETAL: 5/5 upper lower extremity strength. NEUROLOGIC: 2 through 12 intact. PSYCHIATRIC: Alert and oriented x3, very anxious. ASSESSMENT AND PLAN: 1. Recurrent epistaxis: This occurred on anticoagulation and Plavix. The patient underwent cauterization by Dr. Helio Yan 08/04/2017 with some resolution. She returned last night and underwent TXA in the emergency room last night and went home. Rebled this afternoon. Will be evaluated by Dr. Yan today and likely taken to the operating room later this evening. H/H stable 2. Permanent atrial fibrillation: Asymptomatic. Continue beta dirk and diltiazem. Hold Xarelto. 3. History of coronary stent in May 2013: would consider discontinuing Plavix with recurrent epistaxis. Patient requests to be seen by Dr. Hansen prior to surgery; Kaitlin with his team will contact him. No current cardiac or respiratory symptoms. Stress 2015 showed fixed defectss 4. Hyperlipidemia, not on statin. 5. History of breast cancer status post lumpectomy and radiation therapy. She has a repeat mammogram in August. 6. Bipolar disorder. Continue home medications. 7. Severe TR, mod <MR/AR: no e/o volume overload. 8. Hypertension. Resume home medications. 9. Diet: Nothing per oral for now for likely surgery. 10. Deep vein thrombosis prophylaxis. Sequential compression devices. DISPOSITION: Patient warrants observation admission given recurrent epistaxis requiring surgical intervention. /[id number]/MODL MTDD
[2017-08-06] MEDS ORDERED: METOPROLOL TARTRATE 50 MG TAB PO SCH (17:00)
[2017-08-06] MEDS ORDERED: DILTIAZEM CD 120 MG CAP PO SCH (17:00)
[2017-08-06] MEDS ORDERED: hydrALAZINE 20 MG/ML VIAL IVP PRN (17:02)
[2017-08-06] MEDS ORDERED: LORazepam 0.5 MG TAB PO PRN (17:03)
[2017-08-06] MEDS: HALOPERIDOL 1 MG TAB PO SCH ×2 (17:18→18:36)
[2017-08-06] MEDS ORDERED: OXYMETAZOLINE 30 ML NASAL SPRAY EACHNARE ONE (20:00)
[2017-08-06] MEDS: ACETAMINOPHEN 325 MG TAB PO PRN (22:15)
--- NOTE | 2017-08-06 22:33 | GCON ---
[f rep st] CONSULTATION ENT CONSULTATION CHIEF COMPLAINT: Epistaxis. HISTORY OF PRESENT ILLNESS: An 86-year-old female with a recent history of multiple epistaxis. She has been on both Plavix and Xarelto. She was cauterized on Saturday and had returned to the ER with co ntrol of epistaxis a couple more times. She was admitted today secondary to continued bleeding. She has had some mild oozing throughout the course of the day and prior to my visit. She denies lighthe adedness, nausea, vomiting. REVIEW OF SYSTEMS: Is negative but for what is noted in the HPI. PAST MEDICAL HISTORY: 1. Chronic kidney disease. 2. Severe tricuspid regurg, moderate atrial and mitral regurg. 3. Hyperlipidemia. 4. Atrial fibrillation on Xarelto. 5. CAD with history of stents, on Plavix. 6. History of breast cancer. 7. Bipolar disorder. 8. Hypertension. PAST SURGICAL HISTORY: Hysterectomy, cardiac stents, appendectomy, breast lumpectomy. SOCIAL HISTORY: Lives alone in [place]. Denies alcohol and tobacco. ALLERGIES: Cipro, doxycycline, Levaquin, quetiapine, sulfa antibiotics, and quinolones. HOME MEDICATIONS: Reviewed. PHYSICAL EXAM: VITAL SIGNS: Blood pressure 172/125, heart rate 90, respiratory rate 23, O2 saturati ons are 95% on 3 L blow-by. Temperature is 36.5. GENERAL: Alert, interactive, mild distress. HEAD AND FACE: Normocephalic, atraumatic with generally symmetric facial features. EARS: Bilateral pin moustapha and canals are normally formed, nonerythematous, and no evidence of otorrhea. NOSE: Nasal clamp present. No active bleeding. Mild old blood with clamp removed. Nasal cavity was suctioned with f inding of vessel inferior to prior cautery site. Afrin-soaked pledgets placed to help with mild ooze . This prompted some more severe bleeding. ORAL CAVITY: Mild bright red blood in the posterior ac pharynx. NECK: Supple with normal inspection. ASSESSMENT: An 86-year-old female with recurrent right-sided epistaxis. Given her comorbidities, we have taken extensive steps to keep her from having to go to the OR, given risk of anesthesia. She i s actively bleeding on exam. Given this, she is appropriate for procedures to try to stem bleeding i ncluding nasal packing and silver nitrate cautery. The risks, benefits, and alternatives were explai [place] at length to the patient. She stated she understood and agreed. PROCEDURE: After using a Gross suction to evacuate the nose of blood and clots, silver nitrate cau khadra was used toward the mid right septum. Bleeding was significantly reduced but was not completely stopped. After multiple attempts with silver nitrate cautery, a dissolvable Merocel packing was antolin ismael. This was able to stem the bleeding. PLAN: An 86-year-old female with recurrent epistaxis. In no small part, this has been due to her na juan cannula oxygen drying out the nasal passages, her extensive anticoagulation on both Plavix and Xa relto, and her uncontrolled blood pressure, which has been recorded at 175/125 since her admission. The recommendations would include humidified face mask O2 should she need oxygen. As well, blood pre ssure control. We will try to relay this through nursing to the hospitalist. Should she have more b leeding over this next day, she would be appropriate for operative intervention with likely sphenopal atine artery ligation and possible septal cauterization. /[id number]/MODL
[2017-08-07] MEDS: ACETAMINOPHEN 325 MG TAB PO PRN (04:20)
--- NOTE | 2017-08-07 08:01 | SOAPPROG ---
SOAP Progress Note Assessment/Plan: Assessment: Anticoagulated 86-year-old with repeat right epistaxis. Bleeding controlled with cauterization and packing last night. Plan: - NORMOTENSIVE BLOOD PRESSURE CONTROL - no nose blowing - 3 sprays of Afrin q.1 hour x2 to each nare p.r.n. bleeding. - plan to go to OR if patient bleeds today. - will see her again this afternoon. Should there be no bleeding throughout the day, I expect she should be good to go home. 08/07/17 07:57 08/07/17 08:02 Subjective: Complaints of mild old blood from nose and throat. Otherwise somewhat anxious about nosebleeds. Objective: Vital Signs Temp Pulse Resp BP Pulse Ox 35.9 C L 89 14 154/86 H 94 08/07/17 04:03 08/07/17 04:03 08/07/17 04:03 08/07/17 04:28 08/07/17 04:03 Laboratory Results 08/07/17 06:55 08/06/17 08/07/17 08/08/17 05:59 05:59 05:59 Output Total 900 Balance -900 Physical Exam - Physical Exam General Appearance: alert, no apparent distress EENT: PERRL/EOMI, pharynx normal (No active posterior pharyngeal bleeding.), rhinorrhea (Right-sided dissolvable nasal packing in place. No active bleeding. ) Neck: non-tender, normal inspection Respiratory: No respiratory distress Skin: normal color, warm/dry Neuro/Psych: no motor/sensory deficits, alert, normal mood/affect ICD10 Worksheet Patient Problems: Problems Problem Status Onset Epistaxis Acute Acute diastolic heart failure Acute Chest pain Acute Chronic Disease Management/Transitional Care Program Acute Coronary arteriosclerosis Acute Diaphoresis Acute Mitral regurgitation Acute Palpitations Acute
[2017-08-07] MEDS: lamoTRIgine 100 MG TAB PO SCH (08:18)
[2017-08-07] MEDS: METOPROLOL TARTRATE 50 MG TAB PO SCH ×2 (08:18→16:19)
[2017-08-07] MEDS: FUROSEMIDE 20 MG TAB PO SCH (08:18)
[2017-08-07] MEDS: MULTIVITAMINS 1 EACH TAB PO SCH (08:18)
[2017-08-07] MEDS ORDERED: DILTIAZEM CD 120 MG CAP PO SCH (09:16)
--- NOTE | 2017-08-07 10:12 | PDCARPN ---
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 She also has diastolic heart failure and permanent AF (rate control/ OAC). Admitted 08/06 with epistaxis after several ED visits for the same. #. permanent AF: on rate control and rates appear controlled on telemetry Xarelto on hold in setting of epistaxis [id number] of 5 (age 3, htn, female, vascular disease) which would warrant long-term anticoagulation await Dr. Yan's input about when to resume Xarelto if patient deemed inappropriate to resume, she could potentially proceed to [facility] ([facility] closure) but that would be down the road #. CAD: Continue medical management No sx suggestive of angina #. AR/MR/TR: Echo from 09/04/16 reviewed with normal EF and normal LV size, elevated LV filling pressures, mod AR, mod MR, mod-severe TR, and RVSP 60 #. htn. BP elevated which may be situational as pt is regularly followed in clinic and has typically controlled readings both her Metoprolol and Dilt CD have been titrated patient counseled on relaxation avoiding ACEi/ARB due to CKD will monitor as changes have just been initiated #. dyslipidemia. Her last LDL 148 from06/13. She has been intolerant of statins. #. DCHF. FC II symptoms. Appears euvolemic. Continue Lasix and Metoprolol #. nocturnal hypoxia: on supplemental O2 nocturnally recommend humidifier with this Plan: Await Dr. Yan's input regarding timing of AC. 08/07/17 09:57 Subjective: she denies any cp, dyspnea, palpitations, presyncope/syncope. Reviewed/Discussed With: hospitalist (Dr. Christopher) Time Spent With Patient: 25 minutes with 50% of time spent on counseling Objective: Vital Signs (8 Hrs) Temp Pulse Resp BP Pulse Ox 08/07/17 09:13 98.1 F 74 20 142/80 H 92 08/07/17 04:28 154/86 H 08/07/17 04:03 96.6 F L 89 14 154/86 H 94 Intake/Output (24 Hrs) 08/06/17 08/07/17 08/08/17 05:59 05:59 05:59 Output Total 900 Balance -900 Output: Urine (ml) 900 Bedside Commode 900 Other: Weight 87.407 kg Number of Voids Toilet 2 Result Diagrams: 08/07/17 06:55 Telemetry: reviewed/ AF CVR - Physical Exam Constitutional: healthy appearing Eyes: anicteric sclera Ears, Nose, Mouth, Throat: moist mucous membranes Cardiovascular: no gallops, irregularly irregular Respiratory: clear to auscultate bilat, no crackles Gastrointestinal: normoactive bowel sounds Genitourinary: No sapp in urethra Skin: no rashes, no abrasions Neurologic: AAOx3 Psychiatric: cooperative, interactive ICD10 Worksheet Patient Problems: Problems Problem Status Onset Epistaxis Acute Acute diastolic heart failure Acute Chest pain Acute Chronic Disease Management/Transitional Care Program Acute Coronary arteriosclerosis Acute Diaphoresis Acute Mitral regurgitation Acute Palpitations Acute
--- NOTE | 2017-08-07 14:05 | HOSPPROG ---
Hospitalist Progress Note Assessment/Plan: Epistaxis - in setting of xarelto, plavix, chronic nocturnal O2 use, hypertension and picking behavior. S/P cautery, TXA and packing by ENT. Discussed case with Dr. Yan who is comfortable with her resuming AC. We all agree stroke risk outweighs bleeding risk, which is manageable. -ENT following, recommends prn afrin, BP control, no nose blowing or picking -add aquafor -resume xarelto tonight and monitor overnight for further signs of bleeding Chronic A fib - Chads-vasc 5. Rate controlled with MEtoprolol -resume xarelto and monitor closely for bleeding -cont BB -appreciate cardiology input Hypertension - Increase Dilt and Metoprolol, aim for better BP control in setting of epistaxis Hyperlipidemia - cont statin Bipolar disorder - mood stable, cont outpt meds H/O breast cancer Full code DVT PPLX - resuming xarelto today Dispo - change to inpt for further management of epistaxis Subjective: Pt doing well. No further active bleeding. Has coughed up a little dark, old blood. No CP or SOB. Objective: Vital Signs Temp Pulse Resp BP Pulse Ox 37.2 C 88 18 130/78 H 90 L 08/07/17 12:59 08/07/17 12:59 08/07/17 12:59 08/07/17 12:59 08/07/17 12:59 Laboratory Results 08/07/17 06:55 08/06/17 08/07/17 08/08/17 05:59 05:59 05:59 Intake Total 350 Output Total 900 300 Balance -900 50 - Physical Exam Constitutional: no apparent distress Eyes: PERRL Ears, Nose, Mouth, Throat: moist mucous membranes Cardiovascular: regular rate and rhythym Respiratory: no respiratory distress, clear to auscultation Gastrointestinal: normoactive bowel sounds, soft, non-tender abdomen Skin: warm Musculoskeletal: full muscle strength Neurologic: AAOx3 Psychiatric: interacting appropriately ICD10 Worksheet Patient Problems: Problems Problem Status Onset Epistaxis Acute Acute diastolic heart failure Acute Chest pain Acute Chronic Disease Management/Transitional Care Program Acute Coronary arteriosclerosis Acute Diaphoresis Acute Mitral regurgitation Acute Palpitations Acute
[2017-08-07] MEDS ORDERED: OXYMETAZOLINE 30 ML NASAL SPRAY EACHNARE PRN (14:12)
--- NOTE | 2017-08-07 14:32 | ASMTCMCOM ---
CM Note CM Note Notes: Patient admitted for intractable nosebleeds. She has been seen in the ED for this the past few days. She has a history of A-fib and is anti-coagulated. Yesterday, she was cauterized and packed in the ED, and the bleeding has stabilized. She is being followed by ENT and Cardiology, who are investigating an appropriate anticoagulant. PT and OT have been ordered. Patient lives alone in [place] and has some DME at home. She has been going to cardiac rehab, as well as outpatient PT. Her discharge needs are TBD, and Case Management will follow. Date Signed: 08/07/2017 02:31 PM Electronically Signed By:Sandra Burgos RN
[2017-08-07] MEDS: AQUAPHOR OINTMENT 3.5 OZ JAR TP SCH ×2 (14:35→20:30)
--- NOTE | 2017-08-07 15:29 | PDMN ---
Medical Necessity Medical necessity: change to IP; los>2mn for recurrent epistaxis s/p cautery, TXA, and packing; in setting of Xarelto, Plavix, nocturnal O2 use and picking behavior; requires further monitoring for BP control, monitoring for bleeding w/ resumption of Xarelto; comorbid chronic afib on AC, HTN, HLD, bipolar; per order and progress note 08/07/17
[2017-08-07] MEDS ORDERED: POLYETHYLENE GLYCOL 3350 17 GM PKT PO PRN (15:58)
[2017-08-07] MEDS: HALOPERIDOL 1 MG TAB PO SCH (16:20)
[2017-08-07] MEDS ORDERED: RIVAROXABAN 15 MG TAB PO SCH (17:00)
[2017-08-08] MEDS: FUROSEMIDE 20 MG TAB PO SCH (09:01)
[2017-08-08] MEDS: METOPROLOL TARTRATE 50 MG TAB PO SCH (09:01)
[2017-08-08] MEDS: MULTIVITAMINS 1 EACH TAB PO SCH (09:01)
[2017-08-08] MEDS: lamoTRIgine 100 MG TAB PO SCH (09:01)
[2017-08-08] MEDS: AQUAPHOR OINTMENT 3.5 OZ JAR TP SCH (09:03)
--- NOTE | 2017-08-08 10:54 | PDIAF ---
- Diagnosis Diagnosis: epistaxis, A fib, uncontrolled htn, diastolic HF, CAD Code Status: Full Code - Medication Management Discharge Medications: Medications to Continue on Transfer Furosemide [Lasix 20 MG (*)] 20 mg PO DAILY 02/23/15 [Last Taken 08/06/17] Haloperidol [Haldol 1 MG (*)] 1.5 mg PO DAILY@17 02/23/15 [Last Taken 08/05/17] Multivitamins [Multivitamin (*)] 1 each PO DAILY 02/23/15 [Last Taken 08/06/17] Rivaroxaban [Xarelto 15mg (*)] 15 mg PO DAILY@17 02/23/15 [Last Taken 08/05/17] Acetaminophen [Tylenol 325mg (*)] 325 mg PO DAILY PRN 03/19/16 [Last Taken Unknown] lamoTRIgine [LamICTAL 100 MG (*)] 200 mg PO DAILY 03/19/16 [Last Taken 08/06/17] Diltiazem HCl [Diltiazem 24Hr Cd] 240 mg PO DAILY #30 cap.er.24h 08/08/17 [Last Taken Unknown] Metoprolol Tartrate 100 mg PO BID #60 tablet 08/08/17 [Last Taken Unknown] Oxymetazoline HCl [Afrin Nasal [place]] 2 sprays EACHNARE ONCE PRN bottle [Last Taken Unknown] Discharge Medications: Refer to the Discharge Home Medication list for PRN reason. PICC Care - Routine: N/A - Orders Services needed: Home Care, Registered Nurse, Physical Therapy, Occupational Therapy Home Care Face to Face: I certify that this patient was under my care and that I had the required [id number] encounter meeting the encounter requirements on the discharge day. My findings support the fact that the patient is homebound as defined in Home Care Face to Face Continued: CMS Chapter 7 Medicare Benefits Manual 30.1.1 , The condition of the patient is such that there exists a normal inability to leave home and consequently, leaving home would require a considerable and taxing effort. Isolation Type: None Diet Recommendation: no restrictions on diet - Follow Up Care Current Providers and Referrals: Sean Cardenas MD [Primary Care Provider] - As per Instructions Helio Yan MD [Medical Doctor] - Luke Hansen MD [Medical Doctor] -
--- NOTE | 2017-08-08 11:07 | PDCARPN ---
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 She also has diastolic heart failure and permanent AF (rate control/ OAC). Admitted 08/06 with epistaxis after several ED visits for the same. #. epistaxis: hemostasis appears to have been achieved continue Xarelto #. permanent AF: on rate control and rates appear controlled on telemetry Xarelto resumed yesterday [id number] of 5 (age 3, htn, female, vascular disease) which would warrant long-term anticoagulation await Dr. Yan's input about when to resume Xarelto if patient bleeds again, she could potentially proceed to [facility] ([facility] closure) but that would be down the road #. CAD: Continue medical management No sx suggestive of angina #. AR/MR/TR: Echo from 09/04/16 reviewed with normal EF and normal LV size, elevated LV filling pressures, mod AR, mod MR, mod-severe TR, and RVSP 60 #. htn. BP elevated which may be situational as pt is regularly followed in clinic and has typically controlled readings both her Metoprolol and Dilt CD have been titrated patient counseled on relaxation avoiding ACEi/ARB due to CKD will monitor as changes have just been initiated #. dyslipidemia. Her last LDL 148 from06/13. She has been intolerant of statins. #. DCHF. FC II symptoms. Appears euvolemic. Continue Lasix and Metoprolol #. nocturnal hypoxia: on supplemental O2 nocturnally recommend humidifier with this Plan: OK to d/c from cardiology perspective 08/08/17 11:05 Subjective: No further bleeding Reviewed/Discussed With: hospitalist (Dr. Liliana Christopher) Objective: Vital Signs (8 Hrs) Temp Pulse Resp BP Pulse Ox 08/08/17 07:35 98.4 F 76 19 148/76 H 90 L 08/08/17 04:30 98.4 F 83 22 H 142/71 H 91 L Intake/Output (24 Hrs) 08/07/17 08/08/17 08/09/17 05:59 05:59 05:59 Intake Total 690 Output Total 900 Balance -210 Intake: Oral (ml) 690 Output: Urine (ml) 900 Toilet 900 Other: Number of Voids Toilet 1 Result Diagrams: 08/08/17 06:00 Telemetry: AF CVR - Physical Exam Constitutional: no apparent distress Eyes: anicteric sclera Cardiovascular: irregularly irregular Respiratory: clear to auscultate bilat, no crackles Gastrointestinal: normoactive bowel sounds Neurologic: AAOx3 Psychiatric: cooperative, interactive ICD10 Worksheet Patient Problems: Problems Problem Status Onset Epistaxis Acute Acute diastolic heart failure Acute Chest pain Acute Chronic Disease Management/Transitional Care Program Acute Coronary arteriosclerosis Acute Diaphoresis Acute Mitral regurgitation Acute Palpitations Acute
[2017-08-08 12:27] VITALS: BP 128/68; PULSE 75; RESP 17; TEMP 98.8
[2017-08-08 12:31] VITALS: O2SAT 92
--- NOTE | 2017-08-08 18:07 | GDS ---
[f rep st] DISCHARGE SUMMARY DISCHARGE DIAGNOSES: 1. Epistaxis in the setting of Xarelto and Plavix. 2. Chronic atrial fibrillation. 3. Hypertension. 4. Hyperlipidemia. 5. Bipolar disorder. 6. History of breast cancer. CONSULTANTS: 1. Dr. Helio Yan, infectious disease. 2. Kaitlin Suarez PA-C, cardiology. HISTORY: For details please see the history and physical dated August 06, 2017. In brief, the nancy rose is an 86-year-old female with history of coronary artery disease, hypertension, breast cancer, and atrial fibrillation, on Xarelto and Plavix, who presents to the emergency department with severe recu rrent epistaxis. She was previously seen by Dr. Yan, ENT, on August 04 and was cauterized at [facility] time. Her bleeding returned on the day of admission. She was treated with TXA packing and was adm itted to the hospital for further management. HOSPITAL COURSE: Patient was admitted to the Medical/Surgical unit. Her Plavix and Xarelto were hel d. Her Plavix was actually discontinued altogether, given that it has been 4 years since she had her coronary stent placed. As above, she received TXA and cautery, followed by packing by Dr. Yan, E NT. This stabilized her bleeding. She does have a [id number] score of 5 in the setting of AFib; a nd after a lengthy discussion with the patient, we believe her clotting risk outweighs her bleeding r isk, and she was resumed on her Plavix. She was monitored in the hospital for nearly 24 hours after resumption of her Plavix with no further bleeding. Her hemoglobin remained stable. She did not requ phan transfusion, although she did drop her hemoglobin from 15 to 2.4. In addition, attempts were mad e to improve her blood pressure. Her metoprolol and diltiazem doses were both increased, and she is given new prescriptions for these at discharge. She was seen by the Cardiology service and they agre e with the above plan. She will have close followup with ENT, Cardiology, and PCP. DISPOSITION: Patient is discharged home in stable condition with home health services including RN, PT, and OT. FOLLOWUP: 1. Dr. Helio Yan, ENT. 2. Dr. Luke Hansen, cardiology. 3. Dr. Sean Cardenas, primary care. DISCHARGE MEDICATIONS: Please see [facility] for completed outpatient medication list. New medications at discharge include: 1. Diltiazem 240 mg p.o. daily (#30, no refills), increased from 120 daily. 2. Metoprolol 100 mg p.o. b.i.d.( #60, no refills), increased from 50 mg b.i.d. 3. Afrin nasal spray p.r.n. for recurrent bleed, which should be followed by return to the emergency department. Discontinued medications: Plavix. She will continue all her other outpatient medications includin. Xarelto. 2. Lasix. 3. Lamictal. 4. Haldol. 5. Tylenol. /[id number]/MODL
== END 2017-08-08 13:06 | disposition home or self-care (01) | DRG 151 ==
LOC: EDUNIT# → F1N 14:28 → OBSVTOIN 08-07 14:05
PROVIDERS: ADMIT Family Medicine; ATTEND Family Medicine
PROC: 095KXZZ Destruction of Nasal Mucosa and Soft Tissue, External Approach (ICD-10-PCS; principal; 2017-08-07)
DX: R04.0 Epistaxis (principal); I25.10 Atherosclerotic heart disease of native coronary artery without angina pectoris; I48.1 Persistent atrial fibrillation; R09.02 Hypoxemia; I50.30 Unspecified diastolic (congestive) heart failure; E78.5 Hyperlipidemia, unspecified; I12.9 Hypertensive chronic kidney disease with stage 1 through stage 4 chronic kidney disease, or unspecified chronic kidney disease; N18.9 Chronic kidney disease, unspecified; I08.3 Combined rheumatic disorders of mitral, aortic and tricuspid valves; F31.9 Bipolar disorder, unspecified; Z85.3 Personal history of malignant neoplasm of breast; Z87.891 Personal history of nicotine dependence; Z79.01 Long term (current) use of anticoagulants; Z85.42 Personal history of malignant neoplasm of other parts of uterus; Z95.5 Presence of coronary angioplasty implant and graft; I25.2 Old myocardial infarction
CPT/HCPCS: 97165-GO; G0378; G8987-GO-CJ; G8988-GO-CI; J0360

== ENCOUNTER 2017-08-09 20:06 | Inpatient (IN) | payer OTHER, MEDICARE ==
[2017-08-09] MEDS ORDERED: TRANEXAMIC ACID 1,000 MG/10 ML VIAL TP ONE (20:17)
--- NOTE | 2017-08-09 20:30 | EDPHY ---
H & P Stated Complaint: nose bleeding Time Seen by Provider: 08/09/17 20:07 HPI/ROS: CHIEF COMPLAINT: Continued epistaxis HISTORY OF PRESENT ILLNESS: 86-year-old female history of recurrent epistaxis arrives via ambulance for recurrent epistaxis which started approximately 1-2 hours prior to EMS being called. No dizziness. No chest pain. No nausea or vomiting. PRIMARY CARE PROVIDER: REVIEW OF SYSTEMS: A ten point review of systems was performed and is negative with the exception of the items mentioned in the HPI PAST MEDICAL & SURGICAL HISTORY: Recurrent epistaxis. Chronic atrial fibrillation. Hypertension. Hyperlipidemia. Bipolar disorder. Breast cancer history. SOCIAL HISTORY:Nonsmoker PHYSICAL EXAM (Prior to examination, patient consented to physical exam, hands were washed and my usual and customary physical exam procedures followed) 1) GENERAL: Well-developed, well-nourished, alert and oriented. Appears anxious. 2) HEAD: Normocephalic, atraumatic 3) HEENT: Pupils equal, round, reactive to light bilaterally. Sclera anicteric. Nasopharynx: Nasal clip in place, taken down revealing an area of friability right Kiesselbach's plexus. 4) NECK: Full range of motion, no meningeal signs. 5) LUNGS: Clear auscultation bilaterally, no wheezes, no rhonchi, no retractions. 6) HEART: Regular rate and rhythm, no murmur, no heave, no gallop. 7) ABDOMEN: No guarding, no rebound, no focal tenderness, 8) MUSCULOSKELETAL: No peripheral edema or discoloration. 9) BACK: No obvious trauma, no visual or palpable abnormality. 10) SKIN: No rash, no petechiae. 11) Psychiatric: Patient is oriented X 3, there is no agitation. DIFFERENTIAL DIAGNOSIS: In no particular order including but not limited to anterior epistaxis, posterior epistaxis, digital trauma - Personal History Tetanus Vaccine Date: < 5 yrs - Medical/Surgical History Hx Asthma: No Hx Chronic Respiratory Disease: No Hx Diabetes: No Hx Cardiac Disease: Yes Hx Renal Disease: Yes Hx Cirrhosis: No Hx Alcoholism: No Hx HIV/AIDS: No Hx Splenectomy or Spleen Trauma: No Other PMH: STENTS PLACE 06/18/13 , BREAST CA, LUMPECTOMY, HEART ATTACK, HYSTERECTOMY,BIPOLAR,APPY,HTN, ENDOMETRIAL CA, A-FIB, CHF - Social History Smoking Status: Former smoker Constitutional: Initial Vital Signs Temperature (C) 36.4 C 08/09/17 20:16 Heart Rate 99 08/09/17 20:16 Respiratory Rate 20 08/09/17 20:16 Blood Pressure 167/83 H 08/09/17 20:16 O2 Sat (%) 90 L 08/09/17 20:16 Allergies/Adverse Reactions: ciprofloxacin Allergy (Unknown, Unverified 08/09/17 20:27) ciprofloxacin HCl [From Cipro] Allergy (Unknown, Verified 08/09/17 20:27) doxycycline Allergy (Unknown, Verified 08/09/17 20:27) levofloxacin Allergy (Unknown, Unverified 08/09/17 20:27) Sulfa (Sulfonamide Antibiotics) Allergy (Unknown, Unverified 08/09/17 20:27) Rash quetiapine fumarate [From Seroquel] Allergy (Verified 08/09/17 20:27) ciprofloxacin HCl Allergy (Unknown, Uncoded 08/09/17 20:27) quetiapine fumarate Allergy (Unknown, Uncoded 08/09/17 20:27) FLYNN Allergy (Uncoded 08/09/17 20:26) ACHILLES TENDONITIS Home Medications: Medication Instructions Recorded Furosemide [Lasix 20 MG (*)] 20 mg PO DAILY 02/23/15 Haloperidol [Haldol 1 MG (*)] 1.5 mg PO DAILY@02/23/15 Multivitamins [Multivitamin (*)] 1 each PO DAILY 02/23/15 Rivaroxaban [Xarelto 15mg (*)] 15 mg PO DAILY@02/23/15 Acetaminophen [Tylenol 325mg (*)] 325 mg PO DAILY PRN 03/19/16 lamoTRIgine [LamICTAL 100 MG (*)] 200 mg PO DAILY 03/19/16 Diltiazem HCl [Diltiazem 24Hr Cd] 240 mg PO DAILY #30 cap.er.24h 08/08/17 Metoprolol Tartrate 100 mg PO BID #60 tablet 08/08/17 Oxymetazoline HCl [Afrin Nasal 2 sprays EACHNARE ONCE PRN bottle 08/08/17 [place]] Medical Decision Making Procedures: Procedure: Epistaxis control. Indication: Recurrent epistaxis After consulting with on-call ENT. Risks, benefits, alternatives discussed with patient and consent obtained. The right nostril was packed with Merocel and Afrin nasal spray. ED Course/Re-evaluation: 8:29 p.m.: Consultation with on-call ENT Dr. Leah Kendrick. Patient is currently hemostatic. She recommended Merocel packing with Afrin and she will see the patient in the morning. Plan will be admission to hospitalist. Care of patient under supervision of [secondary] supervising physician Dr Bill Batista with whom I discussed case. 838 p.m.: Consultation with hospitalist Dr. Burt who who admit patient - Data Points Laboratory Results: Laboratory Results 08/09/17 20:30 08/09/17 20:30 08/09/17 08/09/17 08/09/17 20:30 20:30 20:30 WBC 8.84 10^3/uL 10^3/uL (3.80-9.50) RBC 4.15 10^6/uL L 10^6/uL (4.18-5.33) Hgb 12.8 g/dL g/dL (12.6-16.3) Hct 38.6 % % (38.0-47.0) MCV 93.0 fL fL (81.5-99.8) MCH 30.8 pg pg (27.9-34.1) MCHC 33.2 g/dL g/dL (32.4-36.7) RDW 13.5 % % (11.5-15.2) Plt Count 215 10^3/uL 10^3/uL (150-400) MPV 9.9 fL fL (8.7-11.7) Neut % (Auto) 63.0 % % (39.3-74.2) Lymph % (Auto) 22.5 % % (15.0-45.0) Camp % (Auto) 9.7 % % (4.5-13.0) Eos % (Auto) 4.1 % % (0.6-7.6) Baso % (Auto) 0.5 % % (0.3-1.7) Nucleat RBC Rel Count 0.0 % % (0.0-0.2) Absolute Neuts (auto) 5.57 10^3/uL 10^3/uL (1.70-6.50) Absolute Lymphs (auto) 1.99 10^3/uL 10^3/uL (1.00-3.00) Absolute Monos (auto) 0.86 10^3/uL H 10^3/uL (0.30-0.80) Absolute Eos (auto) 0.36 10^3/uL 10^3/uL (0.03-0.40) Absolute Basos (auto) 0.04 10^3/uL 10^3/uL (0.02-0.10) Absolute Nucleated RBC 0.00 10^3/uL 10^3/uL (0-0.01) Immature Gran % 0.2 % % (0.0-1.1) Immature Gran # 0.02 10^3/uL 10^3/uL (0.00-0.10) PT 15.6 SEC H SEC (12.0-15.0) INR 1.22 H (0.83-1.16) APTT 35.1 SEC SEC (23.0-38.0) Sodium 143 mEq/L mEq/L (135-145) Potassium 4.2 mEq/L mEq/L (3.5-5.2) Chloride 105 mEq/L mEq/L (97-110) Carbon Dioxide 23 mEq/l mEq/l (22-31) Anion Gap 15 mEq/L mEq/L (8-16) BUN 50 mg/dL H mg/dL (7-23) Creatinine 1.6 mg/dL H mg/dL (0.6-1.0) Estimated GFR 31 Glucose 110 mg/dL H mg/dL (70-100) Calcium 10.3 mg/dL mg/dL (8.5-10.4) Medications Given: Discontinued Medications Tranexamic Acid (Cyklokapron) 500 mg TP EDNOW ONE Stop: 08/09/17 20:18 Last Admin: 08/09/17 20:27 Dose: 500 mg Departure - Departure Disposition: [facility] Acute Clinical Impression: Recurrent epistaxis
[2017-08-09] MEDS ORDERED: OXYMETAZOLINE 30 ML NASAL SPRAY EACHNARE ONE (20:38)
[2017-08-09 20:39] LABS: PLATELET COUNT 215 10^3/uL (150-400)
[2017-08-09 20:48] LABS: INR 1.22 (0.83-1.16); PROTIME(PATIENT) 15.6 SEC (12.0-15.0)
--- NOTE | 2017-08-09 21:49 | CPEKG ---
Heart Rate: 88 RR Interval: 682 P-R Interval: 158 QRSD Interval: 98 QT Interval: 396 QTC Interval: 480 P [place]: 0 QRS Austin: -36 T Wave [place]: 68 EKG Severity - OTHERWISE NORMAL ECG - EKG Impression: SINUS RHYTHM EKG Impression: LEFT AXIS DEVIATION EKG Impression: MINIMAL ST DEPRESSION, LATERAL LEADS Electronically Signed By: Maggie Ferrara 11-Aug-2017 00:45:56
[2017-08-09] MEDS ORDERED: ACETAMINOPHEN 325 MG TAB PO PRN ×2 (21:58→22:00)
[2017-08-09] MEDS ORDERED: OXYMETAZOLINE 30 ML NASAL SPRAY EACHNARE PRN (21:58)
[2017-08-09] MEDS ORDERED: ONDANSETRON 4 MG/2 ML VIAL IVP PRN (22:00)
[2017-08-09] MEDS ORDERED: ONDANSETRON DISINTEGRATING 4 MG TAB PO PRN (22:00)
--- NOTE | 2017-08-09 22:53 | GHP ---
[f rep st] HISTORY AND PHYSICAL DATE OF ADMISSION: 08/09/2017 CHIEF COMPLAINT: Epistaxis. HISTORY OF PRESENT ILLNESS: This is an 86-year-old female with atrial fibrillation and coronary artery disease, with recent problems with epistaxis. Since 08/04, she has been in the emergency department 5 times. She was admitted once. She was discharged yesterday. At that point, in consultation with ENT and Cardiology, the decision had been made to hold her Plavix but continue her Xarelto. She had been monitored for 24 hours of Xarelto without recurrence of her epistaxis. She had been cauterized 2 times in the past 5 days. She had been doing fine without recurrent bleeding, went home, unfortunately had another episode of epistaxis. She thus re-presented to the emergency department. She has received nasal packing in the emergency department. PAST MEDICAL/SURGICAL HISTORY: 1. Recent problems with epistaxis. 2. Atrial fibrillation. 3. Chronic kidney disease. 4. Severe tricuspid regurg, moderate aortic and mitral regurgitation. 5. Hyperlipidemia. 6. Coronary artery disease, status post stents 4 years ago. 7. Breast cancer status post lumpectomy. 8. Bipolar disorder. 9. Hypertension. 10. Hysterectomy. 11. Appendectomy. MEDICATIONS: Please see medication reconciliation. ALLERGIES: Ciprofloxacin, doxycycline, levofloxacin, sulfa, Seroquel, quinolones. FAMILY HISTORY: This was reviewed, noncontributory. SOCIAL HISTORY: She lives alone in [place]. She does not drink, smoke, or use illegal drugs. REVIEW OF SYSTEMS: A 10-point review of systems is conducted and is negative except per History of Present Illness. PHYSICAL EXAM: VITAL SIGNS: Blood pressure is 167/83, heart rate 99, respiration rate 20, saturating 92% on room air. Temperature 36.4. GENERAL: The patient is a somewhat anxious-appearing elderly female, who is resting in bed with nasal packing. HEENT: Shows right-sided nasal packing. CARDIOVASCULAR: Shows her to be irregularly irregular. There is a systolic murmur heard best at the right upper sternal border. PULMONARY: Lungs clear to auscultation bilaterally. ABDOMEN: Soft, nontender, nondistended. SKIN: Shows no rash. : No Aguilar. NEUROLOGIC: Shows her to be alert and oriented x3. She is moving all extremities. PSYCHIATRIC: Shows normal mood and affect. LABORATORY DATA: CBC is normal. INR is 1.2. Basic metabolic panel shows creatinine 1.6, BUN of 50. DATA: 1. Discussed this with Tom Sharma in the emergency department. Will admit for epistaxis. 2. Personally reviewed and interpreted her EKG. This shows sinus rhythm. She has minimal ST depression in V5, V6. IMPRESSION AND PLAN: 1. Epistaxis: Will hold all anticoagulants tonight. Will need to strongly consider restarting Xarelto. ENT has already been consulted by the emergency department, Dr. Kendrick will see her tomorrow. The patient called Kaitlin herself who was consulted. She will also see the patient. Her blood pressure is also suboptimally controlled. In addition to her diltiazem and metoprolol, I have added some Norvasc. 2. Atrial fibrillation: Continue her metoprolol and diltiazem for rate control. Hold Xarelto as above given current bleeding. 3. Coronary artery disease, status post stents: Plavix had been held on the last admission. Will continue to hold this. She is not currently having any chest pain. 4. Bipolar disorder: She is on Lamictal. 5. Hypertension: Continue metoprolol, diltiazem. I have added Norvasc. 6. VTE risk is moderate to high. However, I will hold prophylaxis in the setting of active bleeding. 7. I will make her full code as she was on the last admission. /[id number]/MODL MTDD
[2017-08-09] MEDS: DILTIAZEM XR 240 MG CAP PO SCH (22:56)
[2017-08-09] MEDS: METOPROLOL TARTRATE 100 MG TAB PO SCH (22:57)
[2017-08-09] MEDS: HALOPERIDOL 1 MG TAB PO SCH (22:57)
[2017-08-10 05:47] LABS: PLATELET COUNT 192 10^3/uL (150-400)
[2017-08-10] MEDS: lamoTRIgine 100 MG TAB PO SCH (08:04)
[2017-08-10] MEDS: METOPROLOL TARTRATE 100 MG TAB PO SCH ×2 (08:05→20:15)
--- NOTE | 2017-08-10 09:49 | PDCARPN ---
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 She also has diastolic heart failure and permanent AF (rate control/ OAC). Admitted 08/06 with epistaxis after several ED visits for the same. Discharged 08/08 after 24 hours of resumption of Xarelto #. epistaxis: bleeding has recurred hold Xarelto await input of Dr. Kendrick #. permanent AF: on rate control and rates appear controlled currently [id number] of 5 (age 3, htn, female, vascular disease) which would warrant long-term anticoagulation she could potentially be a candidate for [facility] ([facility] closure) but that would be down the road #. CAD: Continue medical management No sx suggestive of angina Plavix stopped at last admission #. AR/MR/TR: Echo from 09/04/16 reviewed with normal EF and normal LV size, elevated LV filling pressures, mod AR, mod MR, mod-severe TR, and RVSP 60 #. htn. BP elevated which may be situational as pt is regularly followed in clinic and has typically controlled readings both her Metoprolol and Dilt CD have been titrated in last admission will add Hydralazine if BP gets elevated again avoid placing patient on 2 CCB (Amlodipine and Dilt CD) #. dyslipidemia. Her last LDL 148 from06/13. She has been intolerant of statins. #. DCHF. FC II symptoms. Appears euvolemic. Continue Lasix and Metoprolol #. nocturnal hypoxia: on supplemental O2 nocturnally Plan: - No Xarelto 08/10/17 09:49 08/10/17 09:52 Subjective: Very frustrated about bleeding again. No pain. Objective: Vital Signs (8 Hrs) Temp Pulse Resp BP Pulse Ox 08/10/17 07:40 98.2 F 66 18 132/67 H 92 08/10/17 04:00 98.1 F 67 16 114/75 95 Intake/Output (24 Hrs) 08/09/17 08/10/17 08/11/17 05:59 05:59 05:59 Intake Total 400 Balance 400 Intake: Oral (ml) 400 Other: Weight 86.183 kg Output Comment Toilet last BM 08/08 [employer]OR FLOOR reported by pt. Number of Voids Toilet 1 Result Diagrams: 08/10/17 05:20 08/10/17 05:20 - Physical Exam Constitutional: no apparent distress Eyes: anicteric sclera Cardiovascular: systolic murmur, irregularly irregular Respiratory: clear to auscultate bilat Gastrointestinal: normoactive bowel sounds Skin: no rashes, warm, no edema Neurologic: AAOx3 Psychiatric: cooperative, interactive ICD10 Worksheet Patient Problems: Problems Problem Status Onset Recurrent epistaxis Acute Acute diastolic heart failure Acute Chest pain Acute Chronic Disease Management/Transitional Care Program Acute Coronary arteriosclerosis Acute Diaphoresis Acute Epistaxis Acute Mitral regurgitation Acute Palpitations Acute
[2017-08-10] MEDS ORDERED: hydrALAZINE 10 MG TAB PO PRN (09:53)
[2017-08-10] MEDS: CEPHALEXIN 500 MG CAP PO SCH ×3 (11:57→22:40)
--- NOTE | 2017-08-10 12:04 | GOP ---
[f rep st] OPERATIVE REPORT CHIEF COMPLAINT: Recurrent epistaxis. HISTORY OF PRESENT ILLNESS: This is a pleasant 86-year-old woman with atrial fibrillation and coronary artery disease with problems of recurrent epistaxis over the past week. This is her 5th time to the emergency room. She was admitted last week and then discharged, and then bled 2 days later. It sounds like last night when she bled, by the time she got to the ER, it had basically stopped. I was called by the ER and recommended still placing a small Merocel pack and coating it with Afrin and then she was admitted. She had been on Xarelto and Plavix. They held her Plavix a day or two ago, but she had continued her Xarelto, which was then stopped last night. Dr. Yan has been seeing her over the past week. He has cauterized her twice, as well as placed some dissolvable MeroGel packing. She has continued to bleed, although this seems to be all coming from anteriorly. She states it does not really gush down the back part of her throat, but more anteriorly. She has been in the hospital since last night with the pack in the right nare. She has had some issues with elevated blood pressure, but otherwise she is doing well. She denies any bleeding since coming to the ER last night. She denies any feeling of blood going down the back part of her throat. She feels congested, but otherwise no significant shortness of breath or pain. PAST MEDICAL HISTORY: 1. Significant for atrial fibrillation. 2. Cardiovascular disease. 3. Chronic kidney disease. 4. Severe tricuspid regurgitation, moderate aortic and mitral regurgitation. 5. Hyperlipidemia. 6. Bipolar disorder. 7. Hypertension. PAST SURGICAL HISTORY: Significant for hysterectomy, appendectomy, and a lumpectomy for breast cancer in the past. MEDICATIONS: Please see the medication reconciliation. ALLERGIES: Multiple. Please see list. FAMILY HISTORY: Noncontributory. SOCIAL HISTORY: She does not smoke or drink. REVIEW OF SYSTEMS: Negative except for the above. PHYSICAL EXAMINATION: VITAL SIGNS: She is afebrile. Vital signs are stable. She is hypertensive at 153/95. HEENT: She has a Merocel in the right nare. This has no blood on a but secretes some clear liquid. Left nasal cavity is clear and without any dried blood. Oral cavity and oropharynx show tongue is mobile and midline. Palate elevates symmetrically. Posterior oropharynx is clear. There is no new or old blood in the posterior oropharynx. NECK: Neck is thick, but shows no lymphadenopathy or obvious masses. NEUROLOGIC: Cranial nerves 2 through 12 are grossly intact. LABORATORY STUDIES: Today her hemoglobin is 11.8, hematocrit is 35.4, platelet function is a normal at 192. Her coags last night showed a PT of 15.6 and an INR of 1.22. She does have an elevated creatinine at 1.6. ASSESSMENT/PLAN: This is a pleasant 86-year-old patient with multiple medical problems including atrial fibrillation, cardiovascular disease, and chronic kidney disease, who has been having recurrent epistaxis over the past week. She has not bled since she got to the ER yesterday and in talking to her, she states that the bleeding last night was definitely much better than it has been in the past. She was on the Xarelto at that time. Currently, she is not on any blood thinners. She is still having some difficulty with hypertension, but again is not bleeding. I reinforced to her that she has had significant trauma to her nose over the past week with multiple packs being placed multiple times as well as multiple cauteries. I think part of the problem is the blood thinner as well as the hypertension as well as potentially just causing irritation from repeated manipulation. I really reiterated to her that if an anterior pack helps control the bleeding ,she does not need to go to the OR likely. I do not think an SPA ligation would be overly helpful at this point since it seems to be an anterior bleed. I reinforced to her that I think the packing just needs to stay in place for at least 3 days. Typically, in my experience, this helps create some hemostasis and allows that area to heal before pulling the pack. I discussed with her that pulling the pack and then potentially having to replace one in the future just creates more trauma and irritation. She seems to understand this and agrees. I also discussed with her that I really do not want to take her to the OR with her significant other past medical history if it is not absolutely necessary because I do not really want to put her at more risk if it is not going to be overly beneficial, which she understands and agrees. So I have talked to the nurse about keeping the pack in place. I do think it would be reasonable to keep her here to control her blood pressure as well as determine what needs to happen with her blood thinners as well as see if she bleeds if you do restart the blood thinner. I talked to the nurse also about keeping the pack in place and reiterating this to the patient. I have also discussed with her that if she does bleed, I would like them to saturated the pack with Afrin and place a nasal clamp, but do not remove the pack. I have started her on Keflex while the packing is in place. Please let me know if you have any questions or concerns, and I am happy to chat. My phone number is . /[phone]/MODL MTDD
--- NOTE | 2017-08-10 16:06 | ASMTCMCOM ---
CM Note CM Note Notes: Pt. is an 86-year-old woman who lives independently in her own apartment. Pt. has been to the emergency room several times for nosebleeds recently. Hx. Bipolar disorder. Pt. might be open with [facility] for homecare. Please coordinate with [facility] prior to Pt's discharge. CM to follow. Date Signed: 08/10/2017 04:05 PM Electronically Signed By:Laly Cabezas LCSW
--- NOTE | 2017-08-10 16:31 | HOSPPROG ---
Hospitalist Progress Note Assessment/Plan: 86 yo F with hx of AF on chronic AC as well as CAD pw recurrent epistaxis # epistaxis: recurrent in setting of chronic AC, ENT eval and recommend continued packing, afrin if rebleeds, will re-eval in am # AF: continue metop and dilt, holding xarelto for now given above, appreciate cardiology consult # anemia: slight jeffery in h/h, monitoring # CAD: s/p stents, holding plavix, cards following as above # bipolar d/o: continue op mgmt # HTN: continued metop and dilt and added norvasc given suboptimal control, monitoring # CKD: at baseline, normally 1.6 # hypernatremia: mild # IP status, will need > 48 hours stay for eval/mgmt of above given recurrent issues and complex decision making Patient new to my care. Old records reviewed/summarized as above. Subjective: no significant overnight events, she is tolerating packing well, no re bleed Objective: Vital Signs Temp Pulse Resp BP Pulse Ox 38 C 82 20 135/65 H 91 L 08/10/17 14:50 08/10/17 14:50 08/10/17 14:50 08/10/17 14:50 08/10/17 14:50 Laboratory Results 08/10/17 05:20 08/10/17 05:20 08/09/17 08/10/17 08/11/17 05:59 05:59 05:59 Intake Total 400 Balance 400 PT 15.6 SEC (12.0-15.0) H 08/09/17 20:30 INR 1.22 (0.83-1.16) H 08/09/17 20:30 awake alert nad anicteric, nasal packing in right nare op clear rrr no mrg cta b soft nt nd no cce warm dry well perfused oriented appropriate - Time Spent With Patient Time Spent with Patient: greater than 35 minutes Time Spent with Patient: Greater than 35 minutes spent on this patients care, greater than 50% of time spent counseling, educating, and coordinating care regarding the above mentioned plan. ICD10 Worksheet Patient Problems: Problems Problem Status Onset Chest pain Acute Chronic Disease Management/Transitional Care Program Acute Mitral regurgitation Acute Coronary arteriosclerosis Acute Acute diastolic heart failure Acute Palpitations Acute Diaphoresis Acute Epistaxis Acute Recurrent epistaxis Acute
[2017-08-10] MEDS: HALOPERIDOL 1 MG TAB PO SCH (17:24)
[2017-08-10] MEDS ORDERED: BISACODYL 10 MG SUPP PR PRN (18:06)
[2017-08-10] MEDS ORDERED: POLYETHYLENE GLYCOL 3350 17 GM PKT PO PRN (18:06)
[2017-08-10] MEDS ORDERED: LACTULOSE 20 GM/30 ML UDCUP PO PRN (18:06)
[2017-08-10] MEDS: SENNOSIDES/DOCUSATE SODIUM TAB PO SCH (20:15)
[2017-08-10] MEDS: DILTIAZEM XR 240 MG CAP PO SCH (20:15)
--- NOTE | 2017-08-10 20:18 | PDMN ---
Medical Necessity Medical necessity: C/M review: est. > 2 MN LOS for eval and TX of acute and recurrent epistaxis requiring 08/09/2017 small Merocel pack and coating it with Afrin nasal spray in right nares in ED, ongoing close monitoring, maintaining right nares packing, ongoing discontinue Xarelto, pulse oximetry, comorbid recurrent epistaxis over the past week, 08/07/2017-08/09/2017 hospitalization for recurrent epistaxis on anticoagulant med, this is fifth ED visit within one week , comorbid atrial fibrillation, cardiovascular disease, chronic kidney disease, severe tricuspid regurgitation, moderate aortic and mitral regurgitation, hyperlipidemia, bipolar disorder, hypertension per 08/10/2017 ENT operative report, Hospitalist progress note.
[2017-08-11] MEDS: CEPHALEXIN 500 MG CAP PO SCH ×4 (05:27→23:21)
--- NOTE | 2017-08-11 08:03 | SOAPPROG ---
DINO Progress Note Assessment/Plan: Assessment: 1. epistaxis: 2. permanent AF: 3.CAD: 4. AR/MR/TR: 5. htn. 6. dyslipidemia. 7. DCHF. FC II symptoms. 8. nocturnal hypoxia: 08/11/17 08:01 Impression: Stable cardiovascular status off antiplatelet agent, off Xarelto. Rate well controlled. No angina or heart failure. No further recommendations at this time. We will follow her socially during the rest of her hospitalization. Will consider her for a Watchman closure of her atrial appendage so we can avoid long-term anticoagulation. This will be considered as an outpatient. Subjective: Doing okay. Clearly scared about going home with multiple recurrent nose bleeds. From a cardiac point of view she has no chest pain, shortness of breath. She has had no palpitations, syncope, near syncope. She denies PND orthopnea. Objective: Laboratory Tests 08/09/17 08/10/17 08/10/17 20:30 05:20 05:20 Hgb 12.8 11.8 L Sodium 146 H BUN 46 H Creatinine 1.6 H Vital Signs Temp Pulse Resp BP Pulse Ox 36.8 C 58 L 18 143/69 H 92 08/11/17 07:37 08/11/17 07:37 08/11/17 07:37 08/11/17 07:37 08/11/17 07:37 08/10/17 08/11/17 08/12/17 05:59 05:59 05:59 Intake Total 1150 Balance 1150 PT 15.6 SEC (12.0-15.0) H 08/09/17 20:30 INR 1.22 (0.83-1.16) H 08/09/17 20:30 Medications Generic Name Dose Route Start Last Admin Trade Name Freq PRN Reason Stop Dose Admin Metoprolol Tartrate 100 mg 08/09/17 23:00 08/10/17 20:15 Lopressor PO 02/05/18 22:59 100 mg BID STACIE Diltiazem HCl 240 mg 08/09/17 23:00 08/10/17 20:15 Dilacor Xr PO 02/05/18 22:59 240 mg HS STACIE Furosemide 20 mg 08/11/17 09:00 Lasix PO 02/07/18 08:59 DAILY STACIE Physical Exam - Physical Exam General Appearance: alert, anxiety Neck: supple Respiratory: lungs clear Cardiac/Chest: normal peripheral pulses, irregularly irregular Abdomen: normal bowel sounds, non-tender, soft Skin: warm/dry Neuro/Psych: alert ICD10 Worksheet Patient Problems: Problems Problem Status Onset Chest pain Acute Chronic Disease Management/Transitional Care Program Acute Mitral regurgitation Acute Coronary arteriosclerosis Acute Acute diastolic heart failure Acute Palpitations Acute Diaphoresis Acute Epistaxis Acute Recurrent epistaxis Acute Review of Systems - Review of Systems Constitutional: malaise, weakness. denies: chills, fever EENTM: nose congestion Respiratory: no symptoms reported Cardiac: no symptoms reported Gastrointestinal/Abdominal: no symptoms reported Genitourinary: no symptoms Musculoskelatal: no symptoms Skin: no symptoms Neurological: no symptoms Immunologic/allergic: no symptoms reported
[2017-08-11] MEDS: FUROSEMIDE 20 MG TAB PO SCH (08:48)
[2017-08-11] MEDS: lamoTRIgine 100 MG TAB PO SCH (08:48)
[2017-08-11] MEDS: METOPROLOL TARTRATE 100 MG TAB PO SCH ×2 (08:48→20:11)
[2017-08-11] MEDS: SENNOSIDES/DOCUSATE SODIUM TAB PO SCH ×2 (08:49→20:11)
--- NOTE | 2017-08-11 11:30 | HOSPPROG ---
Hospitalist Progress Note Assessment/Plan: 86 yo F with hx of AF on chronic AC as well as CAD pw recurrent epistaxis # epistaxis: recurrent in setting of chronic AC, ENT eval and recommend continued packing, afrin if rebleeds, will re-eval in am. Patient very reluctant to go home until packing is out and she can be sure she will not rebleed given multiple recurrences recently # AF: continue metop and dilt, holding xarelto for now given above, appreciate cardiology consult, consideration for watchman procedure as OP in order to avoid senior living anticoagulation # anemia: slight drop in h/h, no e/o ongoing bleeding # CAD: s/p stents, holding plavix, cards following as above # bipolar d/o: continue op mgmt # HTN: continued metop and dilt and added norvasc given suboptimal control, monitoring # CKD: at baseline, normally 1.6 # hypernatremia: mild # IP status, will need > 48 hours stay for eval/mgmt of above given recurrent issues and complex decision making Care plan reviewed with ENT as above. Subjective: no significant overnight events, patient feeling well but states she is absolutely not going home until the nasal pakcing isout Objective: Vital Signs Temp Pulse Resp BP Pulse Ox 36.4 C 64 18 145/75 H 90 L 08/11/17 10:39 08/11/17 10:39 08/11/17 10:39 08/11/17 10:39 08/11/17 10:39 08/10/17 08/11/17 08/12/17 05:59 05:59 05:59 Intake Total 1150 Balance 1150 PT 15.6 SEC (12.0-15.0) H 08/09/17 20:30 INR 1.22 (0.83-1.16) H 08/09/17 20:30 awake alert nad anicteric, nasal packing in right nare op clear rrr no mrg cta b soft nt nd no cce warm dry well perfused oriented appropriate - Time Spent With Patient Time Spent with Patient: greater than 35 minutes Time Spent with Patient: Greater than 35 minutes spent on this patients care, greater than 50% of time spent counseling, educating, and coordinating care regarding the above mentioned plan. ICD10 Worksheet Patient Problems: Problems Problem Status Onset Chest pain Acute Chronic Disease Management/Transitional Care Program Acute Mitral regurgitation Acute Coronary arteriosclerosis Acute Acute diastolic heart failure Acute Palpitations Acute Diaphoresis Acute Epistaxis Acute Recurrent epistaxis Acute
--- NOTE | 2017-08-11 16:44 | ASMTCMCOM ---
CM Note CM Note Notes: Spoke with Bianca, at [facility]; confirmed pt is current with [facility] for RN/PT/OT. Anticipate dc home with [facility] support when medically stable. CM will follow. Dc plan-[facility] RN/PT/OT Date Signed: 08/11/2017 04:44 PM Electronically Signed By:Zenaida Osborne RN
[2017-08-11] MEDS: DILTIAZEM XR 240 MG CAP PO SCH (20:11)
[2017-08-11] MEDS: HALOPERIDOL 1 MG TAB PO SCH (20:12)
[2017-08-12] MEDS: CEPHALEXIN 500 MG CAP PO SCH ×3 (05:25→20:26)
--- NOTE | 2017-08-12 08:44 | SOAPPROG ---
SOAP Progress Note Assessment/Plan: Assessment: Pt with recurrent epistaxis, no bleeding since Saturday when came to ER. D/w pt that pulling pack earlier at 72 hrs would be this afternoon. Offered dc with pack and pull later with Yuriy though she is adamant that she will not dc home with the pack. She is also adamant that she wants Yuriy to pull pack tomorrow bc he told her if she rebled he would take her to OR. I will talk to him and see if this is an ok plan with him. I'm hoping that with her being off blood thinner and keeping a pack in for long enough this will allow that tissue to heal and she will have a less likely chance to bleed and well as need to go to the OR. Has multiple comorbidities and dont' want to stress her more than necessary. Talked to Dr. Beavers who agrees that this is a good plan. If Dr. Yan agrees, will pull pack likely tomorrow evening. Keep pack in place, keep on abx while pack in place. Call with any questions. Plan: 08/12/17 08:39 Subjective: Pt with no bleeding since pack placed on Saturday. No drainage down back of throat. off all blood thinners. Objective: AFVSS RA Pack in place on R. Clear, dry No blood in post OP. somewhat angry this am Vital Signs Temp Pulse Resp BP Pulse Ox 36.4 C 67 16 142/70 H 97 08/12/17 05:21 08/12/17 05:21 08/12/17 05:21 08/12/17 05:21 08/12/17 05:21 08/11/17 08/12/17 08/13/17 05:59 05:59 05:59 Intake Total 1150 400 Balance 1150 400 PT 15.6 SEC (12.0-15.0) H 08/09/17 20:30 INR 1.22 (0.83-1.16) H 08/09/17 20:30 ICD10 Worksheet Patient Problems: Problems Problem Status Onset Recurrent epistaxis Acute Acute diastolic heart failure Acute Chest pain Acute Chronic Disease Management/Transitional Care Program Acute Coronary arteriosclerosis Acute Diaphoresis Acute Epistaxis Acute Mitral regurgitation Acute Palpitations Acute
[2017-08-12] MEDS: METOPROLOL TARTRATE 100 MG TAB PO SCH ×2 (08:59→20:20)
[2017-08-12] MEDS: FUROSEMIDE 20 MG TAB PO SCH (09:00)
[2017-08-12] MEDS: SENNOSIDES/DOCUSATE SODIUM TAB PO SCH ×2 (09:00→21:51)
[2017-08-12] MEDS: lamoTRIgine 100 MG TAB PO SCH (09:00)
--- NOTE | 2017-08-12 15:23 | HOSPPROG ---
Hospitalist Progress Note Assessment/Plan: 86 yo F with hx of AF on chronic AC as well as CAD pw recurrent epistaxis # epistaxis: recurrent in setting of chronic AC,now off of AC. ENT has been involved, reviewed care plan with Dr. Kendrick who recommended dc of packing-- patient refused. She also states she will not go home with packing in, wants to see Dr. Yan who will eval in am. # AF: continue metop and dilt, holding xarelto for time being given above, appreciate cardiology consult, consideration for watchman procedure as OP in order to avoid longterm anticoagulation # anemia: slight drop in h/h, no e/o ongoing bleeding # CAD: s/p stents, holding plavix, cards following as above # bipolar d/o: continue op mgmt # HTN: continued metop and dilt and added norvasc given suboptimal control, monitoring # CKD: at baseline, normally 1.6 # hypernatremia: mild # IP status, will need > 48 hours stay for eval/mgmt of above given recurrent issues and complex decision making Care plan reviewed with ENT as above. Subjective: no significant overnight events, no rebleeding Objective: Vital Signs Temp Pulse Resp BP Pulse Ox 36.9 C 77 16 150/70 H 91 L 08/12/17 11:00 08/12/17 11:00 08/12/17 11:00 08/12/17 11:00 08/12/17 11:00 08/11/17 08/12/17 08/13/17 05:59 05:59 05:59 Intake Total 1150 400 Balance 1150 400 PT 15.6 SEC (12.0-15.0) H 08/09/17 20:30 INR 1.22 (0.83-1.16) H 08/09/17 20:30 awake alert nad anicteric, nasal packing in right nare op clear rrr no mrg cta b soft nt nd no cce warm dry well perfused oriented appropriate - Time Spent With Patient Time Spent with Patient: greater than 35 minutes Time Spent with Patient: Greater than 35 minutes spent on this patients care, greater than 50% of time spent counseling, educating, and coordinating care regarding the above mentioned plan. ICD10 Worksheet Patient Problems: Problems Problem Status Onset Recurrent epistaxis Acute Acute diastolic heart failure Acute Chest pain Acute Chronic Disease Management/Transitional Care Program Acute Coronary arteriosclerosis Acute Diaphoresis Acute Epistaxis Acute Mitral regurgitation Acute Palpitations Acute
[2017-08-12] MEDS: HALOPERIDOL 1 MG TAB PO SCH (17:40)
[2017-08-12] MEDS: DILTIAZEM XR 240 MG CAP PO SCH (20:19)
[2017-08-12] MEDS ORDERED: HALOPERIDOL 1 MG TAB PO SCH (21:00)
--- NOTE | 2017-08-13 07:43 | SOAPPROG ---
SOAP Progress Note Assessment/Plan: Assessment: S/P multiple nose bleed. Now with pack in right nare. No bleeding since Saturday. Plan: - Recommended leaving the pack in and going home. Patient understood and agreed. - Will follow up in office on . - Call with question: [phone] 08/13/17 07:39 Subjective: No pain or bleeding. Objective: Vital Signs Temp Pulse Resp BP Pulse Ox 36.5 C 75 16 134/80 H 92 08/13/17 04:00 08/13/17 04:00 08/13/17 04:00 08/13/17 04:00 08/13/17 04:00 08/12/17 08/13/17 08/14/17 05:59 05:59 05:59 Intake Total 400 300 Balance 400 300 PT 15.6 SEC (12.0-15.0) H 08/09/17 20:30 INR 1.22 (0.83-1.16) H 08/09/17 20:30 Physical Exam - Physical Exam General Appearance: alert, no apparent distress EENT: PERRL/EOMI, pharynx normal, rhinorrhea (RIGHt nasal pack in place.) Neck: normal inspection Skin: normal color, warm/dry Neuro/Psych: alert, normal mood/affect ICD10 Worksheet Patient Problems: Problems Problem Status Onset Recurrent epistaxis Acute Acute diastolic heart failure Acute Chest pain Acute Chronic Disease Management/Transitional Care Program Acute Coronary arteriosclerosis Acute Diaphoresis Acute Epistaxis Acute Mitral regurgitation Acute Palpitations Acute
[2017-08-13 07:53] VITALS: RESP 18
[2017-08-13] MEDS: METOPROLOL TARTRATE 100 MG TAB PO SCH (08:56)
[2017-08-13] MEDS: CEPHALEXIN 500 MG CAP PO SCH (08:56)
[2017-08-13] MEDS: FUROSEMIDE 20 MG TAB PO SCH (08:56)
[2017-08-13] MEDS: lamoTRIgine 100 MG TAB PO SCH (08:56)
[2017-08-13] MEDS: SENNOSIDES/DOCUSATE SODIUM TAB PO SCH (08:57)
[2017-08-13 11:35] VITALS: TEMP 97.7
--- NOTE | 2017-08-13 11:59 | PDDCSUM ---
Discharge Summary Discharge Summary: Dates of service 08/09-08/13/17 Consultations: ENT, cardiology Procedures: nasal packing Hospital course by problem: # epistaxis: recurrent in setting of chronic AC,now off of AC. ENT has been involved and ultimate plan made to leave packing in until f/u with Dr. Yan in 2 days where she will see him in clinic # AF: continue metop and dilt, holding xarelto for time being given above, appreciate cardiology consult, consideration for watchman procedure as OP in order to avoid mold chipper anticoagulation. She will need to f/u with cardiology as an OP. # anemia: slight drop in h/h, no e/o ongoing bleeding # CAD: s/p stents, holding plavix, cards following as above # bipolar d/o: continue op mgmt # HTN: continued metop and dilt and added norvasc given suboptimal control, monitoring # CKD: at baseline, normally 1.6 # hypernatremia: mild Follow up items: # nasal packing removal # decision about mold chipper AC versus procedure to alleviate need for AC # decision about restarting plavix f/u with PCP, ENT this week and cardiology within the next 2 weeks dc home > 35 min spent in dc more than half in coordination of care
--- NOTE | 2017-08-13 14:29 | PDIAF ---
- Diagnosis Code Status: Full Code - Medication Management Discharge Medications: Medications to Continue on Transfer Furosemide [Lasix 20 MG (*)] 20 mg PO DAILY 02/23/15 [Last Taken 08/09/17] Haloperidol [Haldol 1 MG (*)] 1.5 mg PO DAILY@17 02/23/15 [Last Taken 08/08/17] Multivitamins [Multivitamin (*)] 1 each PO DAILY 02/23/15 [Last Taken 08/09/17] Acetaminophen [Tylenol 325mg (*)] 325 mg PO DAILY PRN 03/19/16 [Last Taken Unknown] lamoTRIgine [LamICTAL 100 MG (*)] 200 mg PO DAILY 03/19/16 [Last Taken 08/09/17] Metoprolol Tartrate 100 mg PO BID #60 tablet 08/08/17 [Last Taken 08/09/17] Oxymetazoline HCl [Afrin Nasal Zavalla] 2 sprays EACHNARE ONCE PRN bottle [Last Taken 08/09/17] Diltiazem HCl [Diltiazem 24Hr ER] 240 mg PO HS 08/09/17 [Last Taken 08/08/17] Acetaminophen [Tylenol 325mg (*)] 650 mg PO Q4HRS PRN tab 08/13/17 [Last Taken Unknown] Cephalexin [Keflex (*)] 500 mg PO BID #8 cap 08/13/17 [Last Taken Unknown] Polyethylene Glycol 3350 [Miralax 17 gm (*)] 17 gm PO DAILY PRN pkt 08/13/17 [ Last Taken Unknown] Sennosides/Docusate Sodium [Senokot-S] 1 - 2 tab PO BID tab 08/13/17 [Last Taken Unknown] Discharge Medications: Refer to the Discharge Home Medication list for PRN reason. - Orders Services needed: Home Care, Registered Nurse, Physical Therapy, Occupational Therapy Home Care Face to Face: I certify that this patient was under my care and that I had the required [id number] encounter meeting the encounter requirements on the discharge day. My findings support the fact that the patient is homebound as defined in Home Care Face to Face Continued: CMS Chapter 7 Medicare Benefits Manual 30.1.1 , The condition of the patient is such that there exists a normal inability to leave home and consequently, leaving home would require a considerable and taxing effort. Isolation Type: None - Follow Up Care Current Providers and Referrals: Sean Cardenas MD [Primary Care Provider] - follow up in 2 weeks Helio Yan MD [Medical Doctor] - (as scheduled ) Patient,NotPresent [Unknown] - As per Instructions Luke Hansen MD [Medical Doctor] - follow up in 2 weeks
--- NOTE | 2017-08-13 14:54 | ASMTCMCOM ---
CM Note CM Note Notes: Dc order received. Spoke with MD & RN. Met with pt to discuss dc poc. Pt agreeable to returning home with the support of her son & [facility] for RN/PT/OT services. Address, phone # & followup ENT appointment confirmed. Pt's son will transport pt later this afternoon. Confirmed dc orders. Alerted Nissa, at [facility]. No other needs at this time. Date Signed: 08/13/2017 02:53 PM Electronically Signed By:Zenaida Osborne RN
[2017-08-13 16:00] VITALS: BP 149/56; PULSE 64; O2SAT 89
--- NOTE | 2017-08-14 10:30 | ASDISCHSUM ---
Discharge Information Plan Status:Home with Home Health Medically Cleared to Leave:08/13/2017 Discharge Date:08/13/2017 05:30 PM D/C Disposition:Home Health Service [facility] D/C Disposition:Home, Routine, Self-Care Projected Discharge Date:08/13/2017 06:00 PM Transportation at D/C:Family Discharge Delay Reason: Follow-Up Date:08/13/2017 06:00 PM Discharge Slot: Final Diagnosis: Placement Information Referral Type:*Home Health Care Services Referral ID:[id number] Provider Name:[facility] Address 1:[address] [facility] [place] [address] Address 2: City:[place] Selection Factors: State:[place] Patient Contact Information Contact Name:JOSE Relationship:Son Address: City:[place] Alternate Phone: State/Zip Code:[place] [address] Email: Financial Information Financial Class:Medicare Primary Plan Desc:MEDICARE INPATIENT Primary Plan Number:[id number] Secondary Plan Desc:[employer]/MDR SUPPLEMENT Secondary Plan Number:[id number] Assessment Information [facility] CM Progress Note CM Note CM Note Notes: Pt. is an 86-year-old woman who lives independently in her own apartment. Pt. has been to the emergency room several times for nosebleeds recently. Hx. Bipolar disorder. Pt. might be open with [facility] for homecare. Please coordinate with [facility] prior to Pt's discharge. CM to follow. Date Signed: 08/10/2017 04:05 PM Electronically Signed By:Laly Cabezas LCSW [facility] CM Progress Note CM Note CM Note Notes: Spoke with Bianca, at [facility]; confirmed pt is current with [facility] for RN/PT/OT. Anticipate dc home with [facility] support when medically stable. CM will follow. Dc plan-[facility] RN/PT/OT Date Signed: 08/11/2017 04:44 PM Electronically Signed By:Zenaida Osborne RN [facility] CM Progress Note CM Note CM Note Notes: Dc order received. Spoke with MD & RN. Met with pt to discuss dc poc. Pt agreeable to returning home with the support of her son & [facility] for RN/PT/OT services. Address, phone # & followup ENT appointment confirmed. Pt's son will transport pt later this afternoon. Confirmed dc orders. Alerted Nissa, at [facility]. No other needs at this time. Date Signed: 08/13/2017 02:53 PM Electronically Signed By:Zenaida Osborne RN Intervention Information Intervention Type:*IM-Signed Date of Service:08/13/2017 01:43 PM Patient Type:Inpatient Staff Member:Lawanda Hill Hours: Discipline: Severity: Comment:
== END 2017-08-13 17:30 | disposition home health service (06) | DRG 151 ==
LOC: EDUNIT# → F3E 22:04 → OBSVTOIN 08-10 14:09
PROVIDERS: ADMIT Student in an Organized Health Care Education/Training Program; ATTEND Student in an Organized Health Care Education/Training Program
PROC: 2Y41X5Z Packing of Nasal Region using Packing Material (ICD-10-PCS; principal; 2017-08-10)
DX: R04.0 Epistaxis (principal); E87.0 Hyperosmolality and hypernatremia; D64.9 Anemia, unspecified; I25.10 Atherosclerotic heart disease of native coronary artery without angina pectoris; F31.9 Bipolar disorder, unspecified; I12.9 Hypertensive chronic kidney disease with stage 1 through stage 4 chronic kidney disease, or unspecified chronic kidney disease; N18.9 Chronic kidney disease, unspecified; E78.5 Hyperlipidemia, unspecified; I48.2 Chronic atrial fibrillation; Z95.5 Presence of coronary angioplasty implant and graft; Z85.3 Personal history of malignant neoplasm of breast; Z79.01 Long term (current) use of anticoagulants
CPT/HCPCS: 97165-GO; 97535-GO; G0378; G8987-GO-CI; G8988-GO-CI; G8989-GO-CI

== ENCOUNTER 2017-08-31 17:30 | Emergency (ER) | payer OTHER, MEDICARE ==
--- NOTE | 2017-08-31 18:11 | EDPHY ---
H & P Time Seen by Provider: 08/31/17 17:55 HPI/ROS: CHIEF COMPLAINT: Rash under left breast HISTORY OF PRESENT ILLNESS: 86-year-old female presents with the rash under the left breast. She was taking a shower today and noticed a red rash under her right breast. She has a burning sensation over the rash. No pain or itching. She tried various creams today, but the rash spread and she became concerned. No prior similar sx. Increased stress recently. REVIEW OF SYSTEMS: Constitutional: No fever, no chills Eyes: No visual changes ENT: No sore throat Respiratory: No cough, no shortness of breath Cardiac: No chest pain Gastrointestinal: No nausea, no vomiting, no abdominal pain Genitourinary: no dysuria Musculoskeletal: No leg pain or swelling Neurological: No headache, no weakness Psychiatric: Anxiety Past Medical/Surgical History: Atrial fibrillation CAD Bipolar disorder Social History: lives alone Smoking Status: Former smoker Physical Exam: General Appearance: Alert, pleasant Eyes: Pupils equal and round, no conjunctival pallor ENT, Mouth: Mucous membranes moist Neck: Normal inspection Respiratory: Lungs are clear to auscultation Cardiovascular: Regular rate and rhythm Gastrointestinal: Abdomen is soft and nontender Neurological: A&O, nonfocal, normal gait Skin: Patchy erythematous rash under the left breast, with 3 distinct areas of rash, each approx 3cm in maximum diameter, irregular to palpation, no papules/ vesicles, does not extend to the back Extremities: Normal inspection Psychiatric: Anxious Constitutional: Initial Vital Signs Temperature (C) 36.8 C 08/31/17 17:32 Heart Rate 76 08/31/17 17:32 Respiratory Rate 18 08/31/17 17:32 Blood Pressure 134/75 H 08/31/17 17:32 O2 Sat (%) 94 08/31/17 17:32 O2 Delivery Mode Room Air Allergies/Adverse Reactions: ciprofloxacin Allergy (Unknown, Verified 08/31/17 17:31) ciprofloxacin HCl [From Cipro] Allergy (Unknown, Verified 08/31/17 17:31) doxycycline Allergy (Unknown, Verified 08/31/17 17:31) levofloxacin Allergy (Unknown, Verified 08/31/17 17:31) Other-Enter Comments Sulfa (Sulfonamide Antibiotics) Allergy (Unknown, Verified 08/31/17 17:31) Rash quetiapine fumarate [From Seroquel] Allergy (Verified 08/31/17 17:31) ciprofloxacin HCl Allergy (Unknown, Uncoded 08/09/17 20:27) quetiapine fumarate Allergy (Unknown, Uncoded 08/09/17 20:27) FLYNN Allergy (Uncoded 08/09/17 20:26) ACHILLES TENDONITIS Home Medications: Medication Instructions Recorded Furosemide [Lasix 20 MG (*)] 20 mg PO DAILY 02/23/15 Haloperidol [Haldol 1 MG (*)] 1.5 mg PO DAILY@17 02/23/15 Multivitamins [Multivitamin (*)] 1 each PO DAILY 02/23/15 Acetaminophen [Tylenol 325mg (*)] 325 mg PO DAILY PRN 03/19/16 lamoTRIgine [LamICTAL 100 MG (*)] 200 mg PO DAILY 03/19/16 Metoprolol Tartrate 100 mg PO BID #60 tablet 08/08/17 Oxymetazoline HCl [Afrin Nasal 2 sprays EACHNARE ONCE PRN bottle 08/08/17 [place]] Diltiazem HCl [Diltiazem 24Hr ER] 180 mg PO HS 08/09/17 Acetaminophen [Tylenol 325mg (*)] 650 mg PO Q4HRS PRN tab 08/13/17 Polyethylene Glycol 3350 [Miralax 17 gm PO DAILY PRN pkt 08/13/17 17 gm (*)] Sennosides/Docusate Sodium 1 - 2 tab PO BID tab 08/13/17 [Senokot-S] Valacyclovir HCl [Valtrex] 1,000 mg PO TID #21 tablet 08/31/17 Medical Decision Making ED Course/Re-evaluation: Rash is most c/w early shingles, especially given burning sensation. Rx for Valtrex given. No steroid rx given; pt has significant anxiety/bipolar disorder and I'm concerned that the steroids may worsen her anxiety/mental health. Also, pt has mild burning sensation, no severe pain, so steroids unlikely to be of benefit. Departure - Departure Disposition: Home, Routine, Self-Care Clinical Impression: Shingles Qualifiers: Herpes zoster complications: without complications Qualified Code(s): B02.9 - Zoster without complications Condition: Good Instructions: Valacyclovir (By mouth), Shingles (ED) Referrals: Sean Cardenas MD [Primary Care Provider] - As per Instructions (Keep your appointment with Dr. Cardenas for Saturday.) Prescriptions: Valacyclovir HCl [Valtrex] 1,000 mg PO TID #21 tablet
[2017-08-31 18:33] VITALS: BP 136/70
== END 2017-08-31 18:33 | disposition home or self-care (01) ==
DX: B02.9 Zoster without complications (principal); I25.10 Atherosclerotic heart disease of native coronary artery without angina pectoris; Z87.891 Personal history of nicotine dependence

== ENCOUNTER → 2017-10-09 | Outpatient (CLI) | payer OTHER, MEDICARE | LOC: BHFA 11:30 | PROVIDERS: ATTEND Internal Medicine Cardiovascular Disease | DX: R01.1 Cardiac murmur, unspecified (principal) ==

== ENCOUNTER → 2017-12-20 | Outpatient (CLI) | payer OTHER, MEDICARE | LOC: FIMAGING 11:37 | PROVIDERS: ATTEND Surgery | DX: N63.12 Unspecified lump in the right breast, upper inner quadrant (principal) ==

== ENCOUNTER 2018-02-16 02:16 | Emergency (ER) | payer OTHER, MEDICARE ==
[2018-02-16 02:40] LABS: PLATELET COUNT 222 10^3/uL (150-400)
[2018-02-16] MEDS: METOPROLOL TARTRATE 25 MG TAB PO ONE (03:05)
--- NOTE | 2018-02-16 03:43 | EDPHY ---
H & P Stated Complaint: heart pounding Time Seen by Provider: 02/16/18 02:22 HPI/ROS: HPI The patient presents with palpitations which have been present throughout the course of the day though began after going on a walk in the afternoon. She feels her heart pounding without any chest pain or shortness of breath. She checked her heart rate at home and it has ranged from 90-140. She does have a history of atrial fibrillation and is followed by [facility]. She was taken off of her metoprolol several days ago because her heart rate was not increasing with exercise and she is also on diltiazem for her atrial fibrillation.. REVIEW OF SYSTEMS 10 systems were reviewed and negative with the exception of the elements mentioned in the history of present illness. PMHx: Atrial fibrillation, CAD, history of recurrent epistaxis Soc Hx: Lives alone PHYSICAL General Appearance: Alert, no distress Eyes: Pupils equal and round no pallor or injection ENT, Mouth: Mucous membranes moist Respiratory: There are no retractions, lungs are clear to auscultation Cardiovascular: Irregularly irregular Gastrointestinal: Abdomen is soft and non-tender, no masses, bowel sounds normal Neurological: A&O, moves all extremities Skin: Warm and dry, no rashes Musculoskeletal: Neck is supple non tender Extremities: symmetrical, full range of motion Psychiatric: Patient is oriented X 3, there is no agitation Source: Patient, EMS, Old records - Personal History Current Tetanus/Diphtheria Vaccine: Unsure Current Tetanus Diphtheria and Acellular Pertussis (TDAP): Unsure Tetanus Vaccine Date: < 5 yrs - Medical/Surgical History Hx Asthma: No Hx Chronic Respiratory Disease: No Hx Diabetes: No Hx Cardiac Disease: Yes Hx Renal Disease: Yes Hx Cirrhosis: No Hx Alcoholism: No Hx HIV/AIDS: No Hx Splenectomy or Spleen Trauma: No Other PMH: [address] 06/18/13 , BREAST CA, LUMPECTOMY, HEART ATTACK, HYSTERECTOMY,BIPOLAR,APPY,HTN, ENDOMETRIAL CA, A-FIB, CHF - Social History Smoking Status: Former smoker Constitutional: Initial Vital Signs Temperature (C) 36.8 C 02/16/18 02:22 Heart Rate 80 02/16/18 02:22 Respiratory Rate 16 02/16/18 02:22 Blood Pressure 214/101 H 02/16/18 02:22 O2 Sat (%) 97 02/16/18 02:22 O2 Delivery Mode Room Air Allergies/Adverse Reactions: ciprofloxacin Allergy (Unknown, Verified 08/31/17 17:31) ciprofloxacin HCl [From Cipro] Allergy (Unknown, Verified 08/31/17 17:31) doxycycline Allergy (Unknown, Verified 08/31/17 17:31) levofloxacin Allergy (Unknown, Verified 08/31/17 17:31) Other-Enter Comments Sulfa (Sulfonamide Antibiotics) Allergy (Unknown, Verified 08/31/17 17:31) Rash quetiapine fumarate [From Seroquel] Allergy (Verified 08/31/17 17:31) ciprofloxacin HCl Allergy (Unknown, Uncoded 08/09/17 20:27) quetiapine fumarate Allergy (Unknown, Uncoded 08/09/17 20:27) FLYNN Allergy (Uncoded 08/09/17 20:26) ACHILLES TENDONITIS Home Medications: Medication Instructions Recorded Furosemide [Lasix 20 MG (*)] 20 mg PO DAILY 02/23/15 Haloperidol [Haldol 1 MG (*)] 1.5 mg PO DAILY@17 02/23/15 Multivitamins [Multivitamin (*)] 1 each PO DAILY 02/23/15 Acetaminophen [Tylenol 325mg (*)] 325 mg PO DAILY PRN 03/19/16 lamoTRIgine [LamICTAL 100 MG (*)] 200 mg PO DAILY 03/19/16 Metoprolol Tartrate 100 mg PO BID #60 tablet 08/08/17 Oxymetazoline HCl [Afrin Nasal 2 sprays EACHNARE ONCE PRN bottle 08/08/17 [place]] Diltiazem HCl [Diltiazem 24Hr ER] 180 mg PO HS 08/09/17 Acetaminophen [Tylenol 325mg (*)] 650 mg PO Q4HRS PRN tab 08/13/17 Polyethylene Glycol 3350 [Miralax 17 gm PO DAILY PRN pkt 08/13/17 17 gm (*)] Sennosides/Docusate Sodium 1 - 2 tab PO BID tab 08/13/17 [Senokot-S] Valacyclovir HCl [Valtrex] 1,000 mg PO TID #21 tablet 08/31/17 Medical Decision Making - Diagnostics EKG Interpretation: EKG: Complete interpretation has been separately recorded in the [facility] archive. Summary impression: Atrial fibrillation Imaging Results: Chest x-ray single view is unchanged from prior with no infiltrate, no cardiomegaly, interpreted by me, radiology interpretation is pending. Imaging: I viewed and interpreted images myself Differential Diagnosis: This is an 87-year-old female with history of atrial fibrillation on diltiazem, taken off of metoprolol a few days ago now presents with palpitations which began after taking a walk earlier in the day. These are associated with generalized malaise without any chest pain or shortness of breath. She is brought in by paramedics. Here she is in atrial fibrillation with a normal rate. Her blood pressure is elevated and she is still having mild symptoms. She was given her previous dose of metoprolol which is 25 mg the improvement in her symptoms. Labs were checked including troponin were unremarkable. Chest x-ray is normal. She feels well enough to go home. I advised her to continue taking metoprolol 25 mg twice daily for the next few days. She is then to follow up with her shroudman. She is happy with this plan. - Data Points Laboratory Results: Laboratory Results 02/16/18 02:30 02/16/18 02:30 Medications Given: Discontinued Medications Metoprolol Tartrate (Lopressor) 25 mg PO EDNOW ONE Stop: 02/16/18 02:51 Last Admin: 02/16/18 03:05 Dose: 25 mg Point of Care Test Results: Chemistry 02/16/18 02:28 POC Troponin I 0.01 ng/mL ng/mL (0.00-0.08) Departure - Departure Disposition: Home, Routine, Self-Care Clinical Impression: Atrial fibrillation, Palpitations Condition: Good Instructions: A-fib (Atrial Fibrillation) (ED) Additional Instructions: I recommend that you restart your metoprolol 25 mg twice daily and follow up with your shroudman in 1-2 days. You should return to the emergency department if your worse in any way. Referrals: Luke Hansen MD [Medical Doctor] - As per Instructions
[2018-02-16 03:52] VITALS: BP 180/95
== END 2018-02-16 03:52 | disposition home or self-care (01) ==
LOC: EDUNIT#
DX: I48.91 Unspecified atrial fibrillation (principal); I25.10 Atherosclerotic heart disease of native coronary artery without angina pectoris; Z95.5 Presence of coronary angioplasty implant and graft; Z85.3 Personal history of malignant neoplasm of breast; I25.2 Old myocardial infarction; I10 Essential (primary) hypertension; Z87.891 Personal history of nicotine dependence; Z85.42 Personal history of malignant neoplasm of other parts of uterus
CPT/HCPCS: 84484-PO

== ENCOUNTER → 2018-02-26 | Outpatient (CLI) | payer OTHER, MEDICARE | LOC: FIMAGING 12:48 | PROVIDERS: ATTEND Physician Assistant Medical | DX: M79.604 Pain in right leg (principal); R22.41 Localized swelling, mass and lump, right lower limb; I50.30 Unspecified diastolic (congestive) heart failure ==

== ENCOUNTER 2018-07-04 04:49 | Emergency (ER) | payer OTHER, MEDICARE ==
[2018-07-04 05:27] LABS: PLATELET COUNT 213 10^3/uL (150-400)
--- NOTE | 2018-07-04 06:07 | CPEKG ---
Test Reason : OPEN Blood Pressure : / mmHG Vent. Rate : 092 BPM Atrial Rate : 000 BPM P-R Int : 085 ms QRS Dur : 100 ms QT Int : 411 ms P-R-T Axes : 000 -38 129 degrees QTc Int : 509 ms Atrial fibrillation Paired ventricular premature complexes Left axis deviation Repol abnrm suggests ischemia, anterolateral Confirmed by Phyllis Ochoa ([id number]) on 07/04/2018 6:06:30 AM Referred By: Phyllis Ochoa Confirmed By:Phyllis Ochoa
--- NOTE | 2018-07-04 06:30 | EDPHY ---
H & P Stated Complaint: Afib, anxiety Time Seen by Provider: 07/04/18 04:53 HPI/ROS: HPI The patient presents brought in by ambulance with concerns for fast heart rate and anxiety. The patient has a longstanding history of persistent atrial fibrillation. She also wears oxygen at night. She noticed that her oxygen tank was making an odd noise and was concerned that it was not working. As she put on her pulse ox did check her oxygen level as she was trouble shooting this. She noticed that her heart rate was quite variable going from 70 to as high as 150 beats per minute. This was concerning for her and made her feel somewhat panicked. She called the oxygen distributor and is getting a new concentrator this morning. She denies any palpitations, chest pain, shortness of breath. She recently tapered off of her metoprolol for atrial fibrillation and now is taking diltiazem which she is compliant with. She has started at cardiac rehab but finds it quite challenging and can only exercise for about 15 min at a time. REVIEW OF SYSTEMS 10 systems were reviewed and negative with the exception of the elements mentioned in the history of present illness. PMHx: Chronic atrial fibrillation, CAD, hypertension, diastolic CHF, valvular heart disease Soc Hx: Lives alone PHYSICAL General Appearance: Alert, no distress Eyes: Pupils equal and round no pallor or injection ENT, Mouth: Mucous membranes moist Respiratory: There are no retractions, lungs are clear to auscultation Cardiovascular: Irregularly irregular Gastrointestinal: Abdomen is soft and non-tender, no masses, bowel sounds normal Neurological: A&O, moves all extremities Skin: Warm and dry, no rashes Musculoskeletal: Neck is supple non tender Extremities: symmetrical, full range of motion Psychiatric: Patient is oriented X 3, there is no agitation Source: Patient, EMS, Old records Exam Limitations: No limitations - Personal History Current Tetanus Diphtheria and Acellular Pertussis (TDAP): Yes Tetanus Vaccine Date: < 5 yrs - Medical/Surgical History Hx Asthma: No Hx Chronic Respiratory Disease: No Hx Diabetes: No Hx Cardiac Disease: Yes Hx Renal Disease: Yes Hx Cirrhosis: No Hx Alcoholism: No Hx HIV/AIDS: No Hx Splenectomy or Spleen Trauma: No Other PMH: [address] 06/18/13 , BREAST CA, LUMPECTOMY, HEART ATTACK, HYSTERECTOMY,BIPOLAR,APPY,HTN, ENDOMETRIAL CA, A-FIB, CHF, ANXIETY - Social History Smoking Status: Former smoker Constitutional: Initial Vital Signs Temperature (C) 36.7 C 07/04/18 04:55 Heart Rate 78 07/04/18 04:55 Respiratory Rate 20 07/04/18 04:55 Blood Pressure 150/102 H 07/04/18 04:55 O2 Sat (%) 93 07/04/18 04:55 O2 Delivery Mode Room Air Allergies/Adverse Reactions: ciprofloxacin Allergy (Unknown, Verified 07/04/18 04:52) ciprofloxacin HCl [From Cipro] Allergy (Unknown, Verified 07/04/18 04:52) doxycycline Allergy (Unknown, Verified 07/04/18 04:52) levofloxacin Allergy (Unknown, Verified 07/04/18 04:52) Other-Enter Comments Sulfa (Sulfonamide Antibiotics) Allergy (Unknown, Verified 07/04/18 04:52) Rash quetiapine fumarate [From Seroquel] Allergy (Verified 07/04/18 04:52) ciprofloxacin HCl Allergy (Unknown, Uncoded 07/04/18 04:52) quetiapine fumarate Allergy (Unknown, Uncoded 07/04/18 04:52) FLYNN Allergy (Uncoded 07/04/18 04:52) ACHILLES TENDONITIS Home Medications: Medication Instructions Recorded Furosemide [Lasix 20 MG (*)] 20 mg PO DAILY 02/23/15 Haloperidol [Haldol 1 MG (*)] 1.5 mg PO DAILY@17 02/23/15 Acetaminophen [Tylenol 325mg (*)] 325 mg PO DAILY PRN 03/19/16 lamoTRIgine [LamICTAL 100 MG (*)] 200 mg PO DAILY 03/19/16 Oxymetazoline HCl [Afrin Nasal 2 sprays EACHNARE ONCE PRN bottle 08/08/17 [place]] Diltiazem HCl [Diltiazem 24Hr ER] 180 mg PO HS 08/09/17 Acetaminophen [Tylenol 325mg (*)] 650 mg PO Q4HRS PRN tab 08/13/17 Polyethylene Glycol 3350 [Miralax 17 gm PO DAILY PRN pkt 08/13/17 17 gm (*)] Sennosides/Docusate Sodium 1 - 2 tab PO BID tab 08/13/17 [Senokot-S] Medical Decision Making - Diagnostics EKG Interpretation: EKG: Complete interpretation has been separately recorded in the [facility] archive. Summary impression: Atrial fibrillation with PVCs present Imaging Results: Chest x-ray two view unchanged from prior, interpreted by me, radiology interpretation is pending. Imaging: I viewed and interpreted images myself Differential Diagnosis: 87-year-old female who lives independently with past medical history of atrial fibrillation, CAD, valvular heart disease, hypertension, diastolic CHF presents brought in by ambulance for feelings of anxiety associated with tachycardia in the setting of broken oxygen concentrator which she usually uses at night for sleep. Here, heart rate is in the 90s and is irregular. She is slightly hypertensive. I met the paramedics at the bedside to obtain their report. Patient was placed on the phototypesetting equipment monitor and was noted to be in atrial fibrillation during the duration of her stay though heart rates dropped from 90s to 60s without any intervention. Blood pressures remained slightly elevated. Patient had normal laboratory testing including troponin, D-dimer is elevated though age adjusted is normal. Creatinine and BUN are at their baseline. Chest x-ray is unremarkable. Patient felt well enough to go home. I advised her to monitor her heart rates there. Her son will pick her up from the emergency department. Differential diagnosis includes atrial fibrillation with RVR, ACS, PE, anxiety. - Data Points Laboratory Results: Laboratory Results 07/04/18 05:11 07/04/18 05:11 07/04/18 07/04/18 07/04/18 05:17 05:11 05:11 WBC RBC Hgb Hct MCV MCH MCHC RDW Plt Count MPV Neut % (Auto) Lymph % (Auto) [place] % (Auto) Eos % (Auto) Baso % (Auto) Nucleat RBC Rel Count Absolute Neuts (auto) Absolute Lymphs (auto) Absolute Monos (auto) Absolute Eos (auto) Absolute Basos (auto) Absolute Nucleated RBC Immature Gran % Immature Gran # D-Dimer 0.64 ug/mLFEU H ug/mLFEU (0.00-0.50) Sodium 139 mEq/L mEq/L (135-145) Potassium 5.2 mEq/L mEq/L (3.5-5.2) Chloride 110 mEq/L mEq/L (97-110) Carbon Dioxide 21 mEq/l L mEq/l (22-31) Anion Gap 8 mEq/L mEq/L (6-14) BUN 26 mg/dL H mg/dL (7-23) Creatinine 1.3 mg/dL H mg/dL (0.6-1.0) Estimated GFR 39 Glucose 115 mg/dL H mg/dL (70-100) Calcium 10.2 mg/dL mg/dL (8.5-10.4) POC Troponin I 0.02 ng/mL ng/mL (0.00-0.08) NT-Pro-B Natriuret Pep 1730 pg/mL H pg/mL (0-450) Specimen Hemolysis 177 07/04/18 05:11 WBC 7.93 10^3/uL 10^3/uL (3.80-9.50) RBC 4.63 10^6/uL 10^6/uL (4.18-5.33) Hgb 14.1 g/dL g/dL (12.6-16.3) Hct 43.6 % % (38.0-47.0) MCV 94.2 fL fL (81.5-99.8) MCH 30.5 pg pg (27.9-34.1) MCHC 32.3 g/dL L g/dL (32.4-36.7) RDW 13.1 % % (11.5-15.2) Plt Count 213 10^3/uL 10^3/uL (150-400) MPV 9.8 fL fL (8.7-11.7) Neut % (Auto) 70.3 % % (39.3-74.2) Lymph % (Auto) 17.0 % % (15.0-45.0) Shelby % (Auto) 8.3 % % (4.5-13.0) Eos % (Auto) 3.5 % % (0.6-7.6) Baso % (Auto) 0.6 % % (0.3-1.7) Nucleat RBC Rel Count 0.0 % % (0.0-0.2) Absolute Neuts (auto) 5.57 10^3/uL 10^3/uL (1.70-6.50) Absolute Lymphs (auto) 1.35 10^3/uL 10^3/uL (1.00-3.00) Absolute Monos (auto) 0.66 10^3/uL 10^3/uL (0.30-0.80) Absolute Eos (auto) 0.28 10^3/uL 10^3/uL (0.03-0.40) Absolute Basos (auto) 0.05 10^3/uL 10^3/uL (0.02-0.10) Absolute Nucleated RBC 0.00 10^3/uL 10^3/uL (0-0.01) Immature Gran % 0.3 % % (0.0-1.1) Immature Gran # 0.02 10^3/uL 10^3/uL (0.00-0.10) D-Dimer Sodium Potassium Chloride Carbon Dioxide Anion Gap BUN Creatinine Estimated GFR Glucose Calcium POC Troponin I NT-Pro-B Natriuret Pep Specimen Hemolysis Point of Care Test Results: Chemistry 07/04/18 05:17 POC Troponin I 0.02 ng/mL ng/mL (0.00-0.08) Departure - Departure Disposition: Home, Routine, Self-Care Clinical Impression: Anxiety Atrial fibrillation Qualifiers: Atrial fibrillation type: chronic Qualified Code(s): I48.2 - Chronic atrial fibrillation Condition: Good Instructions: A-fib (Atrial Fibrillation) (ED) Additional Instructions: Please return to the emergency department if your feeling worse in any way. I recommend that you continue with your cardiac rehab as, follow up with your lactation consultant. I do not think you need any new medications at this time. If your heart rate is above 100 for several hours in your feeling chest pain, shortness of breath, palpitations, you should be evaluated. Referrals: Sean Cardenas MD [Primary Care Provider] - As per Instructions Luke Hansen MD [Medical Doctor] - As per Instructions
[2018-07-04 07:44] VITALS: BP 167/83
== END 2018-07-04 08:07 | disposition home or self-care (01) ==
LOC: EDUNIT#
DX: F41.8 Other specified anxiety disorders (principal); I48.2 Chronic atrial fibrillation; I10 Essential (primary) hypertension; I50.30 Unspecified diastolic (congestive) heart failure; I25.10 Atherosclerotic heart disease of native coronary artery without angina pectoris; Z85.3 Personal history of malignant neoplasm of breast
CPT/HCPCS: 84484-ER

== ENCOUNTER → 2018-07-21 | Outpatient (CLI) | payer OTHER, MEDICARE | LOC: BHFA 14:30 | PROVIDERS: ATTEND Internal Medicine Cardiovascular Disease | DX: I48.91 Unspecified atrial fibrillation (principal) ==

== ENCOUNTER → 2018-07-24 | Outpatient (CLI) | payer OTHER, MEDICARE ==
--- NOTE | 2018-07-24 17:02 | ECHO ---
[email or web address] [address] [address] Main: [phone] Fax: Transthoracic Echocardiogram Name: OSITO DURBIN MR#: [id number] Study Date: 07/24/2018 Study Time: 01:58 PM Date of : 1930 Age: 87 year(s) Height: 170.2 cm (67 in.) Weight: 86.18 kg (190 lb.) BSA: 1.98 m2 Gender: Female Examination: Echo Indication: Atrial Fibrillation Image Quality: Contrast: Requested by: Luke Hansen BP: 132 mmHg/68 mmHg Heart Rate: Rhythm: Atrial fibrillation Indication: Atrial Fibrillation Procedure Staff Milker Machine: Abdullahi Verdin RDCS Reading Physician: Jyoti Larry MD Requesting Provider: Conclusions: Normal size left ventricle. Normal global systolic LV function. EF is 62 %. No regional wall motion abnormality. The rhythm is atrial fibrillation. Moderate asymmetric septal hypertrophy. Normal size right ventricle. Normal RV function. The left atrium is severely dilated. Mild mitral valve regurgitation is present. Mild to moderate aortic valve regurgitation. Moderate tricuspid regurgitation is present. The pulmonary artery pressure is moderately increased. Mild pulmonic valve regurgitation is noted. No pericardial effusion. Overall similar compared with 08/2017 Measurements: Chambers Valvular Assessment AV/MV Valvular Assessment TV/PV Normal Normal Normal Name Value Range Name Value Range Name Value Range Ao Chastity (MM): 3.1 cm (2.2 cm-3.7 AV Vmax: 1.83 m/s (1 m/s-1.7 TR Vmax: 3.42 mm/s ( - ) cm) m/s) TR PGmax: 47 mmHg ( - ) IVSd (2D): 1.5 cm (0.6 cm-1.1 AV maxP mmHg ( - ) syst. PAP: 52 mmHg ( - ) cm) AV meanP mmHg ( - ) PV Vmax: 1.21 m/s (0.6 m/s-0.9 LVDd (2D): 4.6 cm (3.9 cm-5.3 LVOT Vmax: 0.86 m/s (0.7 m/s-1.1 m/s) cm) m/s) PV PGmax: 6 mmHg ( - ) LVDs (2D): 3.1 cm (2.1 cm-4 KAYLAH (Vmax): 1.3 cm2 ( - ) cm) KAYLAH (VTI): 1.4 cm ( - ) LVPWd (2D): 1.1 cm ( - ) AR (PHT): 538 ms ( - ) LVOTd 1.9 cm 1.9 cm mm MV E Vmax: 1.01 m/s ( - ) Patient: OSITO DURBIN Study Date: 07/24/2018 Page 1 of 2 01:58 PM LVEF (2D): 62 (>=54 %) MV meanP mmHg ( - ) RVDd(2D): 2.5 cm (1.9 cm-3.8 MVA (Vmax): 2.0 m/s ( - ) cmmm) Continued Measurements: Chambers Valvular Assessment AV/MV Valvular Assessment TV/PV Name Value Name Value Name Value LADs Lon.5 cm MV Annulus: 3.3 cm CVP (est.): 5 mmHg LA Area: 36.3 cm2 MV VTI: 25.00 cm LA Volume: 130 ml MR Vena Contracta: 0.5 cm LA Volume Index: 65.7 ml/m2 MR ERO: 0.060 cm2 MR PISA radius: 4 mm MR Reg. Volume: 10 ml MR Reg. Fraction: 5 % AR Vmax: 4.97 cm/s AR VTI: 236.0 cm Findings: Left Ventricle: Normal size left ventricle. Normal global systolic LV function. EF is 62 %. No regional wall motion abnormality. The rhythm is atrial fibrillation. Moderate asymmetric septal hypertrophy. Right Ventricle: Normal size right ventricle. Normal RV function. Left Atrium: The left atrium is severely dilated. Right Atrium: The right atrium is normal in size. Mitral Valve: Mild mitral valve leaflet calcification is present. Mild mitral valve regurgitation is present. Aortic Valve: The aortic valve is tri-leaflet. No aortic valve stenosis is present. Mild to moderate aortic valve regurgitation. Tricuspid Valve: The tricuspid valve appears normal. Moderate tricuspid regurgitation is present. The pulmonary artery pressure is moderately increased. Pulmonic Valve: The pulmonic valve is normal in appearance. Mild pulmonic valve regurgitation is noted. Aorta: The aorta is normal. Pericardium: No pericardial effusion. (No Signature Object) Patient: OSITO DURBIN Study Date: 07/24/2018 Page 2 of 2 01:58 PM [id number]
== END ==
LOC: FCP 13:35
PROVIDERS: ATTEND Internal Medicine Interventional Cardiology
DX: I48.91 Unspecified atrial fibrillation (principal)

== ENCOUNTER → 2018-08-05 | Outpatient (CLI) | payer OTHER, MEDICARE | LOC: FIMAGING 15:01 | PROVIDERS: ATTEND Physician Assistant | DX: J90 Pleural effusion, not elsewhere classified (principal); R59.0 Localized enlarged lymph nodes ==

== ENCOUNTER → 2018-08-11 | Outpatient (CLI) | payer OTHER, MEDICARE | LOC: FIMAGING 14:08 | PROVIDERS: ATTEND Physician Assistant | DX: R93.89 Abnormal findings on diagnostic imaging of other specified body structures (principal); R09.02 Hypoxemia; R05 Cough; J90 Pleural effusion, not elsewhere classified ==

== ENCOUNTER 2018-11-24 09:02 | Emergency (ER) | payer OTHER, MEDICARE | END 2018-11-24 10:09 | disposition home or self-care (01) ==